=== PATIENT | female | born 1955 | race Caucasian/White ===

== ENCOUNTER 2023-07-07 16:18 | Inpatient (IN) ==
--- NOTE | 2023-07-07 16:51 | XRay Report ---
XR chest 1V portable CLINICAL HISTORY: Dyspnea. COMPARISON STUDY: No previous studies for comparison. FINDINGS: Lung volumes are normal. No pneumothorax or pleural effusion is present. There is mild card iomegaly. Mild left basilar opacity favors atelectasis. No consolidation is identified to suggest pne umonia. Mild interstitial prominence may be technical. IMPRESSION: 1. Left basilar opacity which favors atelectasis. No consolidation to suggest pneumonia. 2. Mild cardiomegaly. Interstitial prominence, likely technical. Pulmonary vascular congestion could appear similar. ACT 112: Negative or not required by law. Electronically signed by: Saurabh Patterson M.D. 07/07/2023 4:50 PM
--- NOTE | 2023-07-07 17:07 | Emergency Department Note ---
Impression & Plan Community acquired pneumonia, Hypoxia ED Provider Note NAME: RADHA MORAN AGE: 68 SEX: F : 1955 ARRIVES VIA: Ambulance INFORMANT: Patient, ED PROVIDER(S): Ella Lopez MD CHIEF COMPLAINT: Shortness of breath HPI: This is a 68-year-old female presenting for shortness of breath. Patient states that for the past 4 days she has noticed feeling ill with productive cough, yellow sputum. Increased shortness of breath. She has felt unwell with what she thinks her fevers at home. Upon arrival of EMS, they noted her to be hypoxic 85% on room air. She is tachycardic on arrival. At this time she is satting 90% with 2 L nasal cannula. ROS: See above HPI for pertinent positives & negatives. A total of 10 systems reviewed and were otherwise negative. PAST MEDICAL HISTORY: See Below PAST SURGICAL HISTORY: See Below FAMILY HISTORY: See Below SOCIAL HISTORY: See Below HOME MEDICATIONS: See Below ALLERGIES: See Below VITALS: See Below PHYSICAL EXAMINATION: General: resting comfortably in no acute distress Head: Normocephalic and atraumatic Eyes: Normal inspection, extraocular muscles intact, no conjunctival pallor Ear, nose, throat: Normal external exam Neck: Normal range of motion Respiratory: Patient is in no respiratory distress, lungs clear to auscultation bilaterally Cardiovascular: RRR without murmur appreciated GI: soft, nontender, no guarding or rebound Extremities: pulses intact with good cap refills, no LE pitting edema or calf tenderness Neuro: The patient awake and alert, appropriately conversive,no focal decifits Skin: Warm, dry, and intact MEDICAL DECISION MAKING: This is a 68-year-old female presenting for shortness of breath. Patient is hypoxic, with signs of infectious etiology. We will get CBC, BMP, basic labs, chest x-ray, COVID/flu testing. Patient's COVID/flu testing is negative. We will proceed to CTA to rule out PE and underlying pneumonia. X-ray only reveals atelectasis without consolidation to suggest pneumonia. Patient has not hypercarbic. Laboratories show slight leukocytosis. Otherwise CTA does reveal a possible pneumonia versus atelectasis. No PE is seen. Patient require admission for pneumonia and hypoxia. Triage Nursing notes reviewed. Prior medical records reviewed Vital Signs: reviewed and remarkable for no significant abnormalities Differential diagnosis: PE, pneumonia, COVID, CHF. ER treatment provided: See below Diagnostics interpreted by me: ECG: ECG reviewed by me with sinus tachycardia, ventricular rate 104 normal axis, normal ID, normal QRS, normal QTc, no ST segment elevations consistent with STEMI criteria Cardiac Monitoring: An order was placed for continuous cardiac monitoring. The monitor shows a rate of with rhythm. Laboratory studies: As stated above and show below. Imaging studies: See below. Radiographic imaging was reviewed by myself Consultation(s): None Past Med/Surg History Medical History (Updated 07/10/23 @ 11:07 by Ella Lopez MD) Partial traumatic transphalangeal amputation of finger Social History Smoking Status: Current every day smoker Tobacco Type: Cigarettes Second Hand Exposure: No; Do You Dip or Chew Tobacco: No; Tobacco Cessation Education Requested by Patient: No Hx Alcohol Use: No Preferred Language: Frisian Communication Ability: Effective Station Tender Required: No Beliefs That Will Affect Care: None Current Living Situation: Family Other Information That Helps Us Care for You: No Feels Safe at Home: Yes Safety Concerns: Feels Safe At This Time Assistive Devices: None Allergies Allergies Allergy/AdvReac Type Severity Reaction Status Date / Time No Known Allergies Allergy Unknown Unverified 07/08/16 12:46 Home Meds Home Medications Medication Instructions Recorded Confirmed albuterol sulfate 90 mcg/actuation 2 puff inhalation Q4H PRN 07/07/23 07/07/23 aerosol inhaler Shortness Of Breath Or Wheezing Results & Data (ED) Vital Signs Vital Signs - 24 hr 07/07/23 16:28 07/07/23 16:19 07/07/23 16:19 Temperature 37.3 C Temperature Source Oral Pulse Rate 117 H 120 H 120 H Pulse Rate [Right Finger] Respiratory Rate 18 18 Respiratory Effort / Characteristics Non-Labored Respiratory Depth Normal Respiratory Pattern Blood Pressure 171/77 H Blood Pressure [Right Arm] Blood Pressure Mean 108 Blood Pressure Mean [Right Arm] Pulse Oximetry 85 L 85 L Oxygen Delivery Method Room Air Room Air Oxygen Flow Rate Sepsis Recent Fever Within 48 Hours Yes Sepsis New/Unexplained Change in Mental Status N/A Sepsis Action Taken by Nursing No Action Required 07/07/23 16:19 07/07/23 16:36 07/07/23 18:31 Temperature 37.1 C Temperature Source Oral Pulse Rate 108 H Pulse Rate [Right Finger] 106 H Respiratory Rate 18 22 Respiratory Effort / Characteristics Spontaneous Respiratory Depth Normal Normal Respiratory Pattern Regular Blood Pressure Blood Pressure [Right Arm] 180/91 H Blood Pressure Mean Blood Pressure Mean [Right Arm] 120 Pulse Oximetry 91 94 Oxygen Delivery Method Nasal Cannula Nasal Cannula Nasal Cannula Oxygen Flow Rate 2 2 2 Sepsis Recent Fever Within 48 Hours Sepsis New/Unexplained Change in Mental Status Sepsis Action Taken by Nursing Laboratory Data 07/07/23 17:14 07/07/23 17:14 Lab Results 07/07/23 07/07/23 07/07/23 Range/Units 16:55 17:14 17:14 WBC 10.66 (4.8-10.8) K/ul RBC 4.26 (4.20-5.40) M/uL Hgb 12.0 (12.0-16.0) g/dl Hct 35.3 L (37.0-47.0) % MCV 82.9 (80.0-100.0) fL MCH 28.2 (25.0-34.0) pg MCHC 34.0 (32.0-36.0) g/dL RDW Std Deviation 38.3 (36.4-46.3) fL RDW Coeff of Rosario 12.7 (11.5-14.5) % Plt Count 228 (130-400) K/uL MPV 9.2 L (9.4-12.4) fL Immature Gran % (Auto) 0.5 % Neut % (Auto) 87.0 % Lymph % (Auto) 7.2 % Monona % (Auto) 4.9 % Eos % (Auto) 0.1 % Baso % (Auto) 0.3 % Neut # (Auto) 9.28 H (1.40-6.50) K/uL Lymph # (Auto) 0.77 L (1.20-3.40) K/uL Monona # (Auto) 0.52 (0.11-0.59) K/uL Eos # (Auto) 0.01 (0.00-0.50) K/uL Baso # (Auto) 0.03 (0.00-0.20) K/uL Immature Gran # (Auto) 0.05 (0.01-0.20) K/uL VBG pH (7.36-7.41) VBG pCO2 (38-50) mmHg VBG pO2 mmHg VBG HCO3 mmol/L VBG O2 Saturation % VBG Base Excess mEq/L Sodium 136 (136-145) mmol/L Potassium 3.7 (3.5-5.1) mmol/L Chloride 102 (98-107) mmol/L Carbon Dioxide 27 (21-32) mmol/L Anion Gap 7 (3-11) BUN 13 (6-23) mg/dl Creatinine 0.88 (0.6-1.2) mg/dl Est Cr Clr Drug Dosing 66.4 ml/min Est GFR ( Amer) 79.4 ml/min Est GFR (Non-Af Amer) 68.5 ml/min BUN/Creatinine Ratio 14.8 (10-20) Glucose 94 (70-99(Fasting)) mg/dl Calcium 9.2 (8.6-10.3) mg/dl Total Bilirubin 0.8 (0.2-1.0) mg/dl AST 13 (13-39) U/L ALT 9 (7-52) U/L Alkaline Phosphatase 58 (34-104) U/L Troponin I High Sens 3.2 (0-14) pg/ml Total Protein 8.0 (6.0-8.3) gm/dl Albumin 4.1 (3.4-5.0) gm/dl Globulin 3.9 (2.5-4.0) gm/dl Albumin/Globulin Ratio 1.1 (0.9-2) SARS-CoV-2 (PCR) NEGATIVE (Negative) Influenza Type A (PCR) Negative (Neg) Influenza Type B (PCR) Negative (Neg) RSV (RT-PCR) Negative (Neg) 07/07/23 Range/Units 17:14 WBC (4.8-10.8) K/ul RBC (4.20-5.40) M/uL Hgb (12.0-16.0) g/dl Hct (37.0-47.0) % MCV (80.0-100.0) fL MCH (25.0-34.0) pg MCHC (32.0-36.0) g/dL RDW Std Deviation (36.4-46.3) fL RDW Coeff of Rosario (11.5-14.5) % Plt Count (130-400) K/uL MPV (9.4-12.4) fL Immature Gran % (Auto) % Neut % (Auto) % Lymph % (Auto) % Monona % (Auto) % Eos % (Auto) % Baso % (Auto) % Neut # (Auto) (1.40-6.50) K/uL Lymph # (Auto) (1.20-3.40) K/uL Monona # (Auto) (0.11-0.59) K/uL Eos # (Auto) (0.00-0.50) K/uL Baso # (Auto) (0.00-0.20) K/uL Immature Gran # (Auto) (0.01-0.20) K/uL VBG pH 7.44 H (7.36-7.41) VBG pCO2 43 (38-50) mmHg VBG pO2 41 mmHg VBG HCO3 29 mmol/L VBG O2 Saturation 76.2 % VBG Base Excess 4.4 mEq/L Sodium (136-145) mmol/L Potassium (3.5-5.1) mmol/L Chloride (98-107) mmol/L Carbon Dioxide (21-32) mmol/L Anion Gap (3-11) BUN (6-23) mg/dl Creatinine (0.6-1.2) mg/dl Est Cr Clr Drug Dosing ml/min Est GFR ( Amer) ml/min Est GFR (Non-Af Amer) ml/min BUN/Creatinine Ratio (10-20) Glucose (70-99(Fasting)) mg/dl Calcium (8.6-10.3) mg/dl Total Bilirubin (0.2-1.0) mg/dl AST (13-39) U/L ALT (7-52) U/L Alkaline Phosphatase (34-104) U/L Troponin I High Sens (0-14) pg/ml Total Protein (6.0-8.3) gm/dl Albumin (3.4-5.0) gm/dl Globulin (2.5-4.0) gm/dl Albumin/Globulin Ratio (0.9-2) SARS-CoV-2 (PCR) (Negative) Influenza Type A (PCR) (Neg) Influenza Type B (PCR) (Neg) RSV (RT-PCR) (Neg) Administered Medications Albuterol (Albut/Ipratrop 3mg/0.5mg Neb 3 Ml Vial) 3 ml NEB QIDR RAFAEL; Protocol Stop: 08/08/23 18:59 Last Admin: 07/10/23 07:31 Dose: 3 ml Documented By: Admin: 07/09/23 19:22 Dose: 3 ml Documented By: ALVIN Enoxaparin Sodium (Enoxaparin Inj 40 Mg/0.4 Ml Syr) 40 mg SQ HS RAFAEL Stop: 08/07/23 00:00 Last Admin: 07/09/23 20:00 Dose: 40 mg Documented By: Admin: 07/08/23 20:56 Dose: 40 mg Documented By: Admin: 07/08/23 00:57 Dose: 40 mg Documented By: EITAN Guaifenesin (Guaifenesin 600 Mg Tabcr) 600 mg PO Q12 RAFAEL Stop: 08/08/23 20:59 Last Admin: 07/10/23 07:47 Dose: 600 mg Documented By: Admin: 07/09/23 20:00 Dose: 600 mg Documented By: EITAN Doxycycline Hyclate 100 mg/ (Dextrose) 100 mls @ 50 mls/hr IV Q12H RAFAEL Stop: 07/15/23 00:00 Last Infusion: 07/10/23 03:00 Dose: 0 mls/hr Documented By: Admin: 07/10/23 00:53 Dose: 50 mls/hr Documented By: Infusion: 07/09/23 14:45 Dose: 0 mls/hr Documented By: Admin: 07/09/23 12:34 Dose: 50 mls/hr Documented By: Infusion: 07/09/23 03:13 Dose: 0 mls/hr Documented By: Admin: 07/09/23 01:08 Dose: 50 mls/hr Documented By: Infusion: 07/08/23 13:51 Dose: 0 mls/hr Documented By: Admin: 07/08/23 11:21 Dose: 50 mls/hr Documented By: Infusion: 07/08/23 03:05 Dose: 0 mls/hr Documented By: Admin: 07/08/23 00:57 Dose: 50 mls/hr Documented By: EITAN Ceftriaxone Sodium 2,000 mg/ (Dextrose) 70 mls @ 100 mls/hr IV Q24H RAFAEL; Protocol Stop: 07/15/23 08:29 Last Infusion: 07/10/23 08:39 Dose: 0 mls/hr Documented By: Admin: 07/10/23 07:57 Dose: 100 mls/hr Documented By: Infusion: 07/09/23 09:28 Dose: 0 mls/hr Documented By: Admin: 07/09/23 08:33 Dose: 100 mls/hr Documented By: Infusion: 07/08/23 10:02 Dose: 0 mls/hr Documented By: Admin: 07/08/23 09:09 Dose: 100 mls/hr Documented By: SABA Levalbuterol HCl (Levalbuterol 1.25 Mg/3 Ml Neb) 1.25 mg NEB Q2H PRN; Protocol PRN Reason: Shortness Of Breath Or Wheezing Stop: 08/06/23 23:53 Last Admin: 07/09/23 11:14 Dose: 1.25 mg Documented By: AVANI Methadone HCl (Methadone Oral Soln 2 Mg/Ml) 180 mg PO Q24H RAFAEL Stop: 07/22/23 07:59 Last Admin: 07/10/23 07:46 Dose: 180 mg Documented By: Admin: 07/09/23 08:27 Dose: 180 mg Documented By: Admin: 07/08/23 07:56 Dose: 180 mg Documented By: SABA Nicotine (Nicotine 21 Mg/24 Hr Tdsy) 21 mg TD HS RAFAEL Stop: 08/08/23 21:29 Last Admin: 07/09/23 21:49 Dose: 21 mg Documented By: EITAN Non-Formulary Medication (Patient's Own Controlled Med 1) 1 each PO Q24H RAFAEL Stop: 07/22/23 07:59 Last Admin: 07/10/23 07:46 Dose: Not Given Documented By: Admin: 07/09/23 08:29 Dose: Not Given Documented By: Admin: 07/08/23 07:57 Dose: 180 mg Documented By: SABA Prednisone (Prednisone 20 Mg Tab) 40 mg PO DAILY RAFAEL Stop: 07/11/23 12:29 Last Admin: 07/10/23 07:47 Dose: 40 mg Documented By: Admin: 07/09/23 08:30 Dose: 40 mg Documented By: Admin: 07/08/23 13:59 Dose: 40 mg Documented By: SABA Sodium Chloride (Sodium Chlor 7% 4 Ml Neb) 4 ml NEB BIDR RAFAEL Stop: 08/07/23 08:09 Last Admin: 07/10/23 07:19 Dose: 4 ml Documented By: Admin: 07/09/23 19:22 Dose: 4 ml Documented By: Admin: 07/09/23 07:11 Dose: 4 ml Documented By: Admin: 07/08/23 19:19 Dose: 4 ml Documented By: Admin: 07/08/23 09:03 Dose: 4 ml Documented By: [id number] Discontinued Medications Albuterol (Albuterol 0.083% Nebu Soln 3 Ml Vial) 2.5 mg NEB NOW STA; Protocol Stop: 07/07/23 20:08 Last Admin: 07/07/23 20:32 Dose: 2.5 mg Documented By: MARIA INES Methylprednisolone 40 mg/ (Syringe) 0.64 mls @ 1.5 mls/min IV Q8H RAFAEL Stop: 08/07/23 00:00 Last Admin: 07/08/23 07:57 Dose: 1.5 mls/min Documented By: Admin: 07/08/23 00:57 Dose: 1.5 mls/min Documented By: EITAN Ioversol (Optiray 350 500ml) 120 ml IV ONCE ONE Stop: 07/07/23 19:26 Last Admin: 07/07/23 19:25 Dose: 120 ml Documented By: BENTON Ipratropium Exeter (Ipratropium [place] Neb Soln 0.02% 2.5 Ml Vial) 0.5 mg INH QIDR RAFAEL Stop: 08/07/23 06:59 Last Admin: 07/08/23 07:08 Dose: 0.5 mg Documented By: [id number] Ipratropium [place] (Ipratropium [place] Neb Soln 0.02% 2.5 Ml Vial) 0.5 mg INH BIDR RAFAEL Stop: 08/07/23 18:59 Last Admin: 07/09/23 07:12 Dose: 0.5 mg Documented By: Admin: 07/08/23 19:19 Dose: 0.5 mg Documented By: ZAFAR Levalbuterol HCl (Levalbuterol 1.25 Mg/3 Ml Neb) 1.25 mg NEB QIDR RAFAEL Stop: 08/07/23 06:59 Last Admin: 07/08/23 07:08 Dose: 1.25 mg Documented By: [id number] Levalbuterol HCl (Levalbuterol 1.25 Mg/3 Ml Neb) 1.25 mg NEB BIDR RAFAEL Stop: 08/07/23 18:59 Last Admin: 07/09/23 07:11 Dose: 1.25 mg Documented By: Admin: 07/08/23 19:19 Dose: 1.25 mg Documented By: ZAFAR Potassium Chloride (Potassium Chloride Crtab 20 Meq Tabcr) 40 meq PO NOW STA Stop: 07/08/23 12:20 Last Admin: 07/08/23 13:59 Dose: 40 meq Documented By: SABA Imaging Data Radiologist's Impression: Chest X-Ray 07/07/23 16:36 XR chest 1V portable CLINICAL HISTORY: Dyspnea. COMPARISON STUDY: No previous studies for comparison. FINDINGS: Lung volumes are normal. No pneumothorax or pleural effusion is pres ent. There is mild cardiomegaly. Mild left basilar opacity favors atelectasis. No consolidation is identified to suggest pneumonia. Mild interstitial prominence may be technical. IMPRESSION: 1. Left basilar opacity which favors atelectasis. No consolidation to suggest pneumonia. 2. Mild cardiomegaly. Interstitial prominence, likely technical. Pulmonary vascular congestion could appear similar. ACT 112: Negative or not required by law. Electronically signed by: Saurabh Patterson M.D. 07/07/2023 4:50 PM Discharge Plan Visit Data Chief Complaint: Respiratory Problems ED Provider: Ella Lopez Discharge Problem: Community acquired pneumonia, Hypoxia Patient Disposition: Admitted As Inpatient Discharge Instructions Interventions: ED Discharge Assessment Last Done: 07/07/23 23:38
[2023-07-07 17:27] LABS: Base Excess VBG 4.4 mEq/L; HCO3 VBG 29 mmol/L; Oxygen Saturation VBG 76.2 %; PCO2 VBG 43 mmHg (38-50); PO2 VBG 41 mmHg; pH VBG 7.44 (7.36-7.41)
[2023-07-07 17:37] LABS: Basophils # (auto) 0.03 K/uL (0.00-0.20); Basophils % (auto) 0.3 %; Eosinophils # (auto) 0.01 K/uL (0.00-0.50); Eosinophils % (auto) 0.1 %; Hematocrit (blood only) 35.3 % (37.0-47.0); Immature Granulocytes # (auto) 0.05 K/uL (0.01-0.20); Immature Granulocytes % (auto) 0.5 %; Lymphocytes # (auto) 0.77 K/uL (1.20-3.40); Lymphocytes % (auto) 7.2 %; Mean Corpuscular Hemoglobin 28.2 pg (25.0-34.0); Mean Corpuscular Volume 82.9 fL (80.0-100.0); Mean Platelet Volume 9.2 fL (9.4-12.4); Monocytes # (auto) 0.52 K/uL (0.11-0.59); Monocytes % (auto) 4.9 %; Neutrophils # (auto) 9.28 K/uL (1.40-6.50); Platelet Count 228 K/uL (130-400); RDW Coefficient of Variation 12.7 % (11.5-14.5); RDW Standard Deviation 38.3 fL (36.4-46.3); Red Blood Count 4.26 M/uL (4.20-5.40); White Blood Count 10.66 K/ul (4.8-10.8)
[2023-07-07 17:54] LABS: Albumin Globulin Ratio 1.1 (0.9-2); Albumin Level 4.1 gm/dl (3.4-5.0); BUN Creatinine Ratio 14.8 (10-20); Bilirubin,Total 0.8 mg/dl (0.2-1.0); Calcium 9.2 mg/dl (8.6-10.3); Creatinine Clr Calc Pharmacy 66.4 ml/min; Est GFR (African American) 79.4 ml/min; Est GFR (Non-African American) 68.5 ml/min; Globulin 3.9 gm/dl (2.5-4.0); Potassium 3.7 mmol/L (3.5-5.1)
[2023-07-07 17:59] LABS: Troponin I High Sensitivity 3.2 pg/ml (0-14)
[2023-07-07 18:10] LABS: Influenza A virus by PCR Negative (Neg); Influenza B virus by PCR Negative (Neg); RSV by PCR Negative (Neg); SARS CoV2 RNA(COVID-19) Ceph NEGATIVE (Negative)
[2023-07-07] MEDS ORDERED: OPTIRAY 350 500ml IV ONE (19:25)
[2023-07-07] MEDS ORDERED: ALBUTEROL 0.083% NEBU SOLN 3 ML VIAL NEB STA (20:07)
--- NOTE | 2023-07-07 20:22 | CT Scan Report ---
Exam(s): CTA CHEST IV Amt: 120 ml optiray 350 EXAM: CT Angiography Chest With Intravenous Contrast CLINICAL HISTORY: Reason for exam: PE. TECHNIQUE: Axial computed tomographic angiography images of the chest with intravenous contrast. CTDI is 30 mGy and DLP is 384.18 mGy-cm. Automated exposure control was utilized for the study. A dose lowering technique was utilized adhering to the principles of ALARA. MIP reconstructed images were created and reviewed. COMPARISON: None FINDINGS: Pulmonary arteries: Unremarkable. No pulmonary embolus identified. Aorta: No aortic aneurysm or dissection. Atherosclerotic changes in aorta. Lungs: Consolidations in the lower lobes, concerning for atelectasis and pneumonia. Probable atelectasis in the right middle lobe and lingula. Bronchial wall thickening is concerning for bronchitis. Probable mucus impaction and left greater than right lower lobe bronchi. Mild scarring of the lung apices. Pleural space: Unremarkable. No significant effusion. No pneumothorax. Heart: Unremarkable. No cardiomegaly. No significant pericardial effusion. No evidence of RV dysfunction. Bones/joints: Degenerative changes of the spine. No acute fracture. No dislocation. Soft tissues: Unremarkable. Lymph nodes: Unremarkable. No enlarged lymph nodes. IMPRESSION: 1. No pulmonary embolus identified. 2. Consolidations in the lower lobes, concerning for atelectasis and pneumonia. Probable atelectasis in the right middle lobe and lingula. 3. Bronchial wall thickening is concerning for bronchitis. Probable mucus impaction and left greater than right lower lobe bronchi. 4. No aortic aneurysm or dissection. Atherosclerotic changes in aorta. Electronically signed by: Mark Krueger M.D. 07/07/23 20:21 PM
--- NOTE | 2023-07-07 21:42 | History & Physical Report ---
Date of Service July 07, 2023 Assessment & Plan (1) Hypoxia: Plan: 68-year-old female with history of ongoing tobacco abuse and says she is on methadone as she used to do heroin and currently not doing it since last for 5 years as per patient ,comes today because of shortness of breath and cough going on for for last 4 to 5 days. Bringing phlegm. She was hypoxic on room air 85%. Currently on 3 L saturating okay. Hypoxia Ongoing tobacco abuse Mild bilateral rhonchi Likely acute bronchitis and COPD exasperation No leukocytosis and no infiltrate on chest x-ray. COVID and flu and RSV negative. IV Solu-Medrol, nebs [id number] and as needed P.o. doxycycline Monitor the response Two-step prior to discharge Tobacco abuse Needs counseling History of heroin abuse She is currently on methadone Pharmacy confirmed the dose DVT prophylaxis Lovenox Disposition med/telemetry Full code History of Present Illness Chief Complaint: Shortness of breath Primary Care Provider: Sary Magallon PA-C 68-year-old female with history of ongoing tobacco abuse and says she is on methadone as she used to do heroin and currently not doing it since last for 5 years as per patient ,comes today because of shortness of breath and cough going on for for last 4 to 5 days. Bringing phlegm. She was hypoxic on room air 85%. Currently on 3 L she is saturating okay. Denies any fevers. No chest pain. Had episode of vomiting in the ER. No abdominal pain. No headaches. No neck pain. Has some back pain. Normal bowel and bladder movements. Currently resting comfortably. Past medical history as mentioned above Past surgical history none as per patient Social history. Smoking 1 pack of cigarettes daily for last 30 years. Alcohol occasional. History of heroin in the past but states no drug use last for 4/5 years. Family history. Mother had hypertension. Dad had colon cancer as per patient Allergies Allergy/AdvReac Type Severity Reaction Status Date / Time No Known Allergies Allergy Unknown Unverified 07/08/16 12:46 Home Medications Medication Instructions Recorded Confirmed Type albuterol sulfate 90 mcg/actuation 2 puff inhalation Q4H PRN 07/07/23 07/07/23 History aerosol inhaler Shortness Of Breath Or Wheezing Past Med/Surg History Medical History (Updated 07/07/23 @ 21:40 by Luis Ospina MD) Partial traumatic transphalangeal amputation of finger Social History Smoking Status: Current every day smoker Tobacco Type: Cigarettes Second Hand Exposure: No; Do You Dip or Chew Tobacco: No; Tobacco Cessation Education Requested by Patient: No Hx Alcohol Use: No Preferred Language: Latvian Communication Ability: Effective Speech Clinician Required: No Beliefs That Will Affect Care: None Current Living Situation: Family Other Information That Helps Us Care for You: No Feels Safe at Home: Yes Safety Concerns: Feels Safe At This Time Assistive Devices: Glasses Review of Systems Review of Systems: All systems reviewed & are unremarkable except as noted in HPI & below Physical Exam Physical Exam: General- Not in distress Head- atraumatic Eyes- PERRL, ENT- oropharynx clear Neck- supple, no JVD,. Lungs- clear to auscultation mild bilateral rhonchi heard Heart- regular rhythm; no murmur, no gallop. Abdomen- normal bowel sounds, soft, nontender, no distension. Extremities- no pretibial edema, no erythema seen. Neuro- alert, oriented x 3; PERRL, no facial palsy; no dysarthria; non focal. Skin- warm & dry Results & Data Results & Data Vital Signs (Past 12 Hours) Vital Signs Temp Pulse Pulse Resp BP BP Pulse Ox 07/07/23 20:30 105 H 07/07/23 20:13 103 H 20 145/66 H 93 07/07/23 19:30 104 H 17 93 07/07/23 19:29 94 07/07/23 19:26 108 H 159/83 H 92 07/07/23 19:00 98 H 20 96 07/07/23 18:31 37.1 C 106 H 22 180/91 H 94 07/07/23 16:36 07/07/23 16:19 108 H 18 91 07/07/23 16:19 120 H 18 85 L 07/07/23 16:19 37.3 C 120 H 18 171/77 H 85 L 07/07/23 16:28 117 H O2 Del Method O2 Flow Rate 07/07/23 20:30 07/07/23 20:13 Nasal Cannula 3 07/07/23 19:30 Nasal Cannula 3 07/07/23 19:29 Nasal Cannula 3 07/07/23 19:26 Nasal Cannula 2 07/07/23 19:00 Nasal Cannula 2 07/07/23 18:31 Nasal Cannula 2 07/07/23 16:36 Nasal Cannula 2 07/07/23 16:19 Nasal Cannula 2 07/07/23 16:19 Room Air 07/07/23 16:19 Room Air 07/07/23 16:28 Diagnostic Findings Laboratory Results WBC 10.66 K/ul (4.8-10.8) 07/07/23 17:14 RBC 4.26 M/uL (4.20-5.40) 07/07/23 17:14 Hgb 12.0 g/dl (12.0-16.0) 07/07/23 17:14 Hct 35.3 % (37.0-47.0) L 07/07/23 17:14 MCV 82.9 fL (80.0-100.0) 07/07/23 17:14 MCH 28.2 pg (25.0-34.0) 07/07/23 17:14 MCHC 34.0 g/dL (32.0-36.0) 07/07/23 17:14 RDW Std Deviation 38.3 fL (36.4-46.3) 07/07/23 17:14 RDW Coeff of Rosario 12.7 % (11.5-14.5) 07/07/23 17:14 Plt Count 228 K/uL (130-400) 07/07/23 17:14 MPV 9.2 fL (9.4-12.4) L 07/07/23 17:14 Immature Gran % (Auto) 0.5 % 07/07/23 17:14 Neut % (Auto) 87.0 % 07/07/23 17:14 Lymph % (Auto) 7.2 % 07/07/23 17:14 [place] % (Auto) 4.9 % 07/07/23 17:14 Eos % (Auto) 0.1 % 07/07/23 17:14 Baso % (Auto) 0.3 % 07/07/23 17:14 Neut # (Auto) 9.28 K/uL (1.40-6.50) H 07/07/23 17:14 Lymph # (Auto) 0.77 K/uL (1.20-3.40) L 07/07/23 17:14 [place] # (Auto) 0.52 K/uL (0.11-0.59) 07/07/23 17:14 Eos # (Auto) 0.01 K/uL (0.00-0.50) 07/07/23 17:14 Baso # (Auto) 0.03 K/uL (0.00-0.20) 07/07/23 17:14 Immature Gran # (Auto) 0.05 K/uL (0.01-0.20) 07/07/23 17:14 VBG pH 7.44 (7.36-7.41) H 07/07/23 17:14 VBG pCO2 43 mmHg (38-50) 07/07/23 17:14 VBG pO2 41 mmHg 07/07/23 17:14 VBG HCO3 29 mmol/L 07/07/23 17:14 VBG O2 Saturation 76.2 % 07/07/23 17:14 VBG Base Excess 4.4 mEq/L 07/07/23 17:14 Sodium 136 mmol/L (136-145) 07/07/23 17:14 Potassium 3.7 mmol/L (3.5-5.1) 07/07/23 17:14 Chloride 102 mmol/L (98-107) 07/07/23 17:14 Carbon Dioxide 27 mmol/L (21-32) 07/07/23 17:14 Anion Gap 7 (3-11) 07/07/23 17:14 BUN 13 mg/dl (6-23) 07/07/23 17:14 Creatinine 0.88 mg/dl (0.6-1.2) 07/07/23 17:14 Est Cr Clr Drug Dosing 66.4 ml/min 07/07/23 17:14 Est GFR ( Amer) 79.4 ml/min 07/07/23 17:14 Est GFR (Non-Af Amer) 68.5 ml/min 07/07/23 17:14 BUN/Creatinine Ratio 14.8 (10-20) 07/07/23 17:14 Glucose 94 mg/dl (70-99(Fasting)) 07/07/23 17:14 Calcium 9.2 mg/dl (8.6-10.3) 07/07/23 17:14 Total Bilirubin 0.8 mg/dl (0.2-1.0) 07/07/23 17:14 AST 13 U/L (13-39) 07/07/23 17:14 ALT 9 U/L (7-52) 07/07/23 17:14 Alkaline Phosphatase 58 U/L (34-104) 07/07/23 17:14 Troponin I High Sens 3.2 pg/ml (0-14) 07/07/23 17:14 Total Protein 8.0 gm/dl (6.0-8.3) 07/07/23 17:14 Albumin 4.1 gm/dl (3.4-5.0) 07/07/23 17:14 Globulin 3.9 gm/dl (2.5-4.0) 07/07/23 17:14 Albumin/Globulin Ratio 1.1 (0.9-2) 07/07/23 17:14 SARS-CoV-2 (PCR) NEGATIVE (Negative) 07/07/23 16:55 Influenza Type A (PCR) Negative (Neg) 07/07/23 16:55 Influenza Type B (PCR) Negative (Neg) 07/07/23 16:55 RSV (RT-PCR) Negative (Neg) 07/07/23 16:55 Impressions Chest X-Ray 07/07/23 16:36 XR chest 1V portable CLINICAL HISTORY: Dyspnea. COMPARISON STUDY: No previous studies for comparison. FINDINGS: Lung volumes are normal. No pneumothorax or pleural effusion is present. There is mild cardiomegaly. Mild left basilar opacity favors atelectasis. No consolidation is identified to suggest pneumonia. Mild interstitial prominence may be technical. IMPRESSION: 1. Left basilar opacity which favors atelectasis. No consolidation to suggest pneumonia. 2. Mild cardiomegaly. Interstitial prominence, likely technical. Pulmonary vascular congestion could appear similar. ACT 112: Negative or not required by law. Electronically signed by: Saurabh Patterson M.D. 07/07/2023 4:50 PM Chest CTA 07/07/23 16:48 Exam(s): CTA CHEST IV Amt: 120 ml optiray 350 EXAM: CT Angiography Chest With Intravenous Contrast CLINICAL HISTORY: Reason for exam: PE. TECHNIQUE: Axial computed tomographic angiography images of the chest with intravenous contrast. CTDI is 30 mGy and DLP is 384.18 mGy-cm. Automated exposure control was utilized for the study. A dose lowering technique was utilized adhering to the principles of ALARA. MIP reconstructed images were created and reviewed. COMPARISON: None FINDINGS: Pulmonary arteries: Unremarkable. No pulmonary embolus identified. Aorta: No aortic aneurysm or dissection. Atherosclerotic changes in aorta. Lungs: Consolidations in the lower lobes, concerning for atelectasis and pneumonia. Probable atelectasis in the right middle lobe and lingula. Bronchial wall thickening is concerning for bronchitis. Probable mucus impaction and left greater than right lower lobe bronchi. Mild scarring of the lung apices. Pleural space: Unremarkable. No significant effusion. No pneumothorax. Heart: Unremarkable. No cardiomegaly. No significant pericardial effusion. No evidence of RV dysfunction. Bones/joints: Degenerative changes of the spine. No acute fracture. No dislocation. Soft tissues: Unremarkable. Lymph nodes: Unremarkable. No enlarged lymph nodes. IMPRESSION: 1. No pulmonary embolus identified. 2. Consolidations in the lower lobes, concerning for atelectasis and pneumonia. Probable atelectasis in the right middle lobe and lingula. 3. Bronchial wall thickening is concerning for bronchitis. Probable mucus impaction and left greater than right lower lobe bronchi. 4. No aortic aneurysm or dissection. Atherosclerotic changes in aorta. Electronically signed by: Mark Krueger M.D. 07/07/23 20:21 PM ECG Additional Comments: ECG. Sinus tachycardia rate of 104. Nonspecific ST abnormalities. No significant change was found. Code Status & VTE Plan VTE Prophylaxis Plan VTE Prophylaxis will be ordered: Yes
[2023-07-07] MEDS ORDERED: NITROGLYCERIN SL 0.4 MG/TAB TAB SL PRN (23:54)
[2023-07-07] MEDS ORDERED: ACETAMINOPHEN 325 MG TAB PO PRN (23:54)
[2023-07-07] MEDS ORDERED: LEVALBUTEROL 1.25 MG/3 ML NEB NEB PRN (23:54)
[2023-07-08 00:48] LABS: Appearance Urine Clear (Clear); Bilirubin Urine Negative (Negative); Blood Urine Negative (Negative); Color Urine Yellow; Glucose Urine UA Negative (Negative); Ketones Urine Trace (Negative); Leukocyte Esterase Urine Negative (Negative); Nitrite Urine Negative (Negative); Protein Urine Negative (Negative); Specific Gravity Urine > 1.045 (1.000-1.030); Urobilinogen Urine Negative (Negative)
[2023-07-08] MEDS: ENOXAPARIN INJ 40 MG/0.4 ML SYR SQ SCH ×2 (00:57→20:56)
[2023-07-08] MEDS: DOXYCYCLINE HYCLATE 100 MG in DEXTROSE 5% MINI-B 100 ML IV SCH ×2 (00:57→11:21)
[2023-07-08] MEDS: methylPREDNISolone 40 MG in SYRINGE 0 ML IV SCH ×2 (00:57→07:57)
[2023-07-08 06:41] LABS: Hematocrit (blood only) 39.3 % (37.0-47.0); Hemoglobin 13.2 g/dl (12.0-16.0); Mean Corpuscular Hgb Conc 33.6 g/dL (32.0-36.0); Mean Corpuscular Volume 83.3 fL (80.0-100.0); Mean Platelet Volume 9.2 fL (9.4-12.4); Platelet Count 250 K/uL (130-400); RDW Coefficient of Variation 12.4 % (11.5-14.5); Red Blood Count 4.72 M/uL (4.20-5.40); White Blood Count 13.36 K/ul (4.8-10.8)
[2023-07-08 06:54] LABS: BUN Creatinine Ratio 13.6 (10-20); Calcium 9.7 mg/dl (8.6-10.3); Est GFR (African American) 87.7 ml/min; Est GFR (Non-African American) 75.7 ml/min; Magnesium 2.1 mg/dl (1.7-2.4); Potassium 3.4 mmol/L (3.5-5.1)
[2023-07-08] MEDS ORDERED: LEVALBUTEROL 1.25 MG/3 ML NEB NEB SCH ×2 (07:00→09:00)
[2023-07-08] MEDS ORDERED: IPRATROPIUM BROMIDE NEB SOLN 0.02% 2.5 ML VIAL INH SCH ×2 (07:00→09:00)
[2023-07-08 07:22] LABS: Basophils # (auto) 0.02 K/uL (0.00-0.20); Basophils % (auto) 0.1 %; Hypersegmented Neutrophils 1+; Immature Granulocytes # (auto) 0.09 K/uL (0.01-0.20); Immature Granulocytes % (auto) 0.7 %; Lymphocytes # (auto) 0.66 K/uL (1.20-3.40); Lymphocytes % (auto) 4.9 %; Monocytes # (auto) 0.13 K/uL (0.11-0.59); Neutrophils # (auto) 12.46 K/uL (1.40-6.50); Neutrophils % (auto) 93.3 %; Rouleaux 1+
[2023-07-08] MEDS: METHADONE ORAL SOLN 2 MG/ML PO SCH (07:56)
[2023-07-08] MEDS: PATIENT'S OWN CONTROLLED MED 1 PO SCH (07:57)
[2023-07-08] MEDS ORDERED: XOPENEX/ATROVENT 1.25mg/0.5MG NEB COMBO NEB SCH (09:00)
[2023-07-08] MEDS: SODIUM CHLOR 7% 4 ML NEB NEB SCH ×2 (09:03→19:19)
[2023-07-08] MEDS: cefTRIAXone SODIUM 2,000 MG in DEXTROSE 5% 50 ML IV SCH (09:09)
--- NOTE | 2023-07-08 11:32 | Electrocardiogram Report ---
Test Reason : Blood Pressure : / mmHG Vent. Rate : 104 BPM Atrial Rate : 104 BPM P-R Int : 168 ms QRS Dur : 090 ms QT Int : 354 ms P-R-T Axes : 076 016 059 degrees QTc Int : 465 ms Sinus tachycardia Diffuse Minor Nonspecific ST abnormality Abnormal ECG When compared with ECG of 02-JAN-2023 08:47, No significant change was found Confirmed by Christian Russ ([id number]) on 07/08/2023 11:32:10 AM Referred By: REFERRED SELF Confirmed By:Christian Russ
[2023-07-08] MEDS ORDERED: POTASSIUM CHLORIDE CRTAB 20 MEQ TABCR PO STA (12:19)
--- NOTE | 2023-07-08 12:24 | Hospitalist Progress Note ---
Date of Service July 08, 2023 Assessment & Plan (1) Hypoxia: Plan: 68-year-old female with history of ongoing tobacco abuse and says she is on methadone as she used to do heroin and currently not doing it since last for 5 years as per patient ,comes today because of shortness of breath and cough going on for for last 4 to 5 days. Bringing phlegm. She was hypoxic on room air 85%. Acute hypoxic respiratory failure Pneumonia Possible COPD exacerbation 68-year-old female with history of ongoing tobacco abuse presents with shortness of breath and cough for 4 days Chest x-ray personally reviewed; left basilar opacity present CTA chest personally reviewed; consolidation in lower lobes concerning for atelectasis and pneumonia. Mucus impaction present as well EKG personally reviewed; sinus tachycardia; diffuse and nonspecific ST changes. QTc of 465 Continue on ipratropium and levalbuterol nebs twice daily along with hypertonic saline for airway clearance Started on ceftriaxone and doxycycline for the pneumonia Wean down oxygen as needed Will need outpatient pulmonology referral. Prednisone for 5 days Tobacco abuse Needs counseling Will need to follow-up with PCP regarding tobacco use disorder. History of heroin abuse She is currently on methadone Pharmacy confirmed the dose DVT prophylaxis Lovenox Disposition med/telemetry Full code Time spent evaluating patient, direct bedside care, chart review, placing orders, interpretation of diagnostic studies, discussion with consultants, patient, and family members, as well as other required patient management activities is 60 minutes Please note the above document was generated using voice recognition software. It may contain grammatical, syntax or spelling errors. Any formal questions or concerns about the content, text or information contained within the body of this dictation should be directly addressed to the provider for clarification Admission and Anticipated Discharge Date Admission Date: July 07, 2023 Subjective Patient seen and examined at bedside. She reports she is feeling slightly better compared to admission. She reports coughing up clear sputum. Review of Systems Review of Systems: All systems reviewed & are unremarkable except as noted in Subjective Physical Exam Physical Exam: General- Not in distress Head- atraumatic Eyes- PERRL, ENT- oropharynx clear Neck- supple, no JVD,. Lungs- occasional crackles on bilateral bases Heart- regular rhythm; no murmur, no gallop. Abdomen- normal bowel sounds, soft, nontender, no distension. Extremities- no pretibial edema, no erythema seen. Neuro- alert, oriented x 3; PERRL, no facial palsy; no dysarthria; non focal. Skin- warm & dry Results & Data Results & Data Vital Signs (Past 12 Hours) Vital Signs Temp Pulse Pulse Resp BP Pulse Ox O2 Del Method 07/08/23 10:49 36.8 C 73 20 100/55 L 90 Nasal Cannula 07/08/23 07:15 88 07/08/23 07:15 Nasal Cannula 07/08/23 09:05 82 15 91 Nasal Cannula 07/08/23 07:23 36.8 C 89 20 132/68 92 Nasal Cannula 07/08/23 07:10 88 19 87 L Nasal Cannula 07/08/23 03:07 36.9 C 85 22 124/68 93 Nasal Cannula O2 Flow Rate 07/08/23 10:49 3 07/08/23 07:15 07/08/23 07:15 4 07/08/23 09:05 3 07/08/23 07:23 2 07/08/23 07:10 4 07/08/23 03:07 4 Laboratory Results Laboratory Results WBC 13.36 K/ul (4.8-10.8) H 07/08/23 06:14 RBC 4.72 M/uL (4.20-5.40) 07/08/23 06:14 Hgb 13.2 g/dl (12.0-16.0) 07/08/23 06:14 Hct 39.3 % (37.0-47.0) 07/08/23 06:14 MCV 83.3 fL (80.0-100.0) 07/08/23 06:14 MCH 28.0 pg (25.0-34.0) 07/08/23 06:14 MCHC 33.6 g/dL (32.0-36.0) 07/08/23 06:14 RDW Std Deviation 38.0 fL (36.4-46.3) 07/08/23 06:14 RDW Coeff of Rosario 12.4 % (11.5-14.5) 07/08/23 06:14 Plt Count 250 K/uL (130-400) 07/08/23 06:14 MPV 9.2 fL (9.4-12.4) L 07/08/23 06:14 Immature Gran % (Auto) 0.7 % 07/08/23 06:14 Neut % (Auto) 93.3 % 07/08/23 06:14 Lymph % (Auto) 4.9 % 07/08/23 06:14 [place] % (Auto) 1.0 % 07/08/23 06:14 Eos % (Auto) 0.0 % 07/08/23 06:14 Baso % (Auto) 0.1 % 07/08/23 06:14 Neut # (Auto) 12.46 K/uL (1.40-6.50) H 07/08/23 06:14 Lymph # (Auto) 0.66 K/uL (1.20-3.40) L 07/08/23 06:14 [place] # (Auto) 0.13 K/uL (0.11-0.59) 07/08/23 06:14 Eos # (Auto) 0.00 K/uL (0.00-0.50) 07/08/23 06:14 Baso # (Auto) 0.02 K/uL (0.00-0.20) 07/08/23 06:14 Immature Gran # (Auto) 0.09 K/uL (0.01-0.20) 07/08/23 06:14 Hypersegmented Neuts 1+ 07/08/23 06:14 Rouleaux 1+ 07/08/23 06:14 VBG pH 7.44 (7.36-7.41) H 07/07/23 17:14 VBG pCO2 43 mmHg (38-50) 07/07/23 17:14 VBG pO2 41 mmHg 07/07/23 17:14 VBG HCO3 29 mmol/L 07/07/23 17:14 VBG O2 Saturation 76.2 % 07/07/23 17:14 VBG Base Excess 4.4 mEq/L 07/07/23 17:14 Sodium 137 mmol/L (136-145) 07/08/23 06:14 Potassium 3.4 mmol/L (3.5-5.1) L 07/08/23 06:14 Chloride 101 mmol/L (98-107) 07/08/23 06:14 Carbon Dioxide 28 mmol/L (21-32) 07/08/23 06:14 Anion Gap 8 (3-11) 07/08/23 06:14 BUN 11 mg/dl (6-23) 07/08/23 06:14 Creatinine 0.81 mg/dl (0.6-1.2) 07/08/23 06:14 Est Cr Clr Drug Dosing 64.0 ml/min 07/08/23 06:14 Est GFR ( Amer) 87.7 ml/min 07/08/23 06:14 Est GFR (Non-Af Amer) 75.7 ml/min 07/08/23 06:14 BUN/Creatinine Ratio 13.6 (10-20) 07/08/23 06:14 Glucose 171 mg/dl (70-99(Fasting)) H 07/08/23 06:14 Calcium 9.7 mg/dl (8.6-10.3) 07/08/23 06:14 Magnesium 2.1 mg/dl (1.7-2.4) 07/08/23 06:14 Total Bilirubin 0.8 mg/dl (0.2-1.0) 07/07/23 17:14 AST 13 U/L (13-39) 07/07/23 17:14 ALT 9 U/L (7-52) 07/07/23 17:14 Alkaline Phosphatase 58 U/L (34-104) 07/07/23 17:14 Troponin I High Sens 3.2 pg/ml (0-14) 07/07/23 17:14 Total Protein 8.0 gm/dl (6.0-8.3) 07/07/23 17:14 Albumin 4.1 gm/dl (3.4-5.0) 07/07/23 17:14 Globulin 3.9 gm/dl (2.5-4.0) 07/07/23 17:14 Albumin/Globulin Ratio 1.1 (0.9-2) 07/07/23 17:14 Urine Color Yellow 07/08/23 Unknown Urine Appearance Clear (Clear) 07/08/23 Unknown Urine pH 5.0 (4.5-7.5) 07/08/23 Unknown Ur Specific [place] > 1.045 (1.000-1.030) H 07/08/23 Unknown Urine Protein Negative (Negative) 07/08/23 Unknown Urine Glucose (UA) Negative (Negative) 07/08/23 Unknown Urine Ketones Trace (Negative) H 07/08/23 Unknown Urine Blood Negative (Negative) 07/08/23 Unknown Urine Nitrite Negative (Negative) 07/08/23 Unknown Urine Bilirubin Negative (Negative) 07/08/23 Unknown Urine Urobilinogen Negative (Negative) 07/08/23 Unknown Ur Leukocyte Esterase Negative (Negative) 07/08/23 Unknown SARS-CoV-2 (PCR) NEGATIVE (Negative) 07/07/23 16:55 Influenza Type A (PCR) Negative (Neg) 07/07/23 16:55 Influenza Type B (PCR) Negative (Neg) 07/07/23 16:55 RSV (RT-PCR) Negative (Neg) 07/07/23 16:55 Impressions Chest X-Ray 07/07/23 16:36 XR chest 1V portable CLINICAL HISTORY: Dyspnea. COMPARISON STUDY: No previous studies for comparison. FINDINGS: Lung volumes are normal. No pneumothorax or pleural effusion is present. There is mild cardiomegaly. Mild left basilar opacity favors atelec tasis. No consolidation is identified to suggest pneumonia. Mild interstitial prominence may be technical. IMPRESSION: 1. Left basilar opacity which favors atelectasis. No consolidation to suggest pneumonia. 2. Mild cardiomegaly. Interstitial prominence, likely technical. Pulmonary vascular congestion could appear similar. ACT 112: Negative or not required by law. Electronically signed by: Saurabh Patterson M.D. 07/07/2023 4:50 PM Chest CTA 07/07/23 16:48 Exam(s): CTA CHEST IV Amt: 120 ml optiray 350 EXAM: CT Angiography Chest With Intravenous Contrast CLINICAL HISTORY: Reason for exam: PE. TECHNIQUE: Axial computed tomographic angiography images of the chest with intravenous contrast. CTDI is 30 mGy and DLP is 384.18 mGy-cm. Automated exposure control was utilized for the study. A dose lowering technique was utilized adhering to the principles of ALARA. MIP reconstructed images were created and reviewed. COMPARISON: None FINDINGS: Pulmonary arteries: Unremarkable. No pulmonary embolus identified. Aorta: No aortic aneurysm or dissection. Atherosclerotic changes in aorta. Lungs: Consolidations in the lower lobes, concerning for atelectasis and pneumonia. Probable atelectasis in the right middle lobe and lingula. Bronchial wall thickening is concerning for bronchitis. Probable mucus impaction and left greater than right lower lobe bronchi. Mild scarring of the lung apices. Pleural space: Unremarkable. No significant effusion. No pneumothorax. Heart: Unremarkable. No cardiomegaly. No significant pericardial effusion. No evidence of RV dysfunction. Bones/joints: Degenerative changes of the spine. No acute fracture. No dislocation. Soft tissues: Unremarkable. Lymph nodes: Unremarkable. No enlarged lymph nodes. IMPRESSION: 1. No pulmonary embolus identified. 2. Consolidations in the lower lobes, concerning for atelectasis and pneumonia. Probable atelectasis in the right middle lobe and lingula. 3. Bronchial wall thickening is concerning for bronchitis. Probable mucus impaction and left greater than right lower lobe bronchi. 4. No aortic aneurysm or dissection. Atherosclerotic changes in aorta. Electronically signed by: Mark Krueger M.D. 07/07/23 20:21 PM
[2023-07-08] MEDS: predniSONE 20 MG TAB PO SCH (13:59)
[2023-07-08] MEDS: IPRATROPIUM BROMIDE NEB SOLN 0.02% 2.5 ML VIAL INH SCH (19:19)
[2023-07-08] MEDS: LEVALBUTEROL 1.25 MG/3 ML NEB NEB SCH (19:19)
[2023-07-09] MEDS: DOXYCYCLINE HYCLATE 100 MG in DEXTROSE 5% MINI-B 100 ML IV SCH ×2 (01:08→12:34)
[2023-07-09 06:38] LABS: Basophils # (auto) 0.02 K/uL (0.00-0.20); Basophils % (auto) 0.1 %; Hematocrit (blood only) 35.8 % (37.0-47.0); Immature Granulocytes # (auto) 0.11 K/uL (0.01-0.20); Immature Granulocytes % (auto) 0.6 %; Lymphocytes # (auto) 1.22 K/uL (1.20-3.40); Lymphocytes % (auto) 6.9 %; Mean Corpuscular Hemoglobin 28.2 pg (25.0-34.0); Mean Corpuscular Hgb Conc 33.5 g/dL (32.0-36.0); Mean Platelet Volume 9.2 fL (9.4-12.4); Neutrophils # (auto) 15.65 K/uL (1.40-6.50); Neutrophils % (auto) 88.4 %; Platelet Count 227 K/uL (130-400); RDW Coefficient of Variation 12.6 % (11.5-14.5); RDW Standard Deviation 38.4 fL (36.4-46.3); Red Blood Count 4.26 M/uL (4.20-5.40)
[2023-07-09 07:00] LABS: BUN Creatinine Ratio 21.3 (10-20); Calcium 9.6 mg/dl (8.6-10.3); Creatinine Clr Calc Pharmacy 64.8 ml/min; Est GFR (Non-African American) 76.8 ml/min; Potassium 3.6 mmol/L (3.5-5.1)
[2023-07-09] MEDS: SODIUM CHLOR 7% 4 ML NEB NEB SCH ×2 (07:11→19:22)
[2023-07-09] MEDS: LEVALBUTEROL 1.25 MG/3 ML NEB NEB SCH (07:11)
[2023-07-09] MEDS: IPRATROPIUM BROMIDE NEB SOLN 0.02% 2.5 ML VIAL INH SCH (07:12)
[2023-07-09] MEDS: METHADONE ORAL SOLN 2 MG/ML PO SCH (08:27)
[2023-07-09] MEDS: PATIENT'S OWN CONTROLLED MED 1 PO SCH (08:29)
[2023-07-09] MEDS: predniSONE 20 MG TAB PO SCH (08:30)
[2023-07-09] MEDS: cefTRIAXone SODIUM 2,000 MG in DEXTROSE 5% 50 ML IV SCH (08:33)
--- NOTE | 2023-07-09 15:49 | Hospitalist Progress Note ---
Date of Service July 09, 2023 Assessment & Plan (1) Hypoxia: Plan: 68-year-old female with history of ongoing tobacco abuse and says she is on methadone as she used to do heroin and currently not doing it since last for 5 years as per patient ,comes today because of shortness of breath and cough going on for for last 4 to 5 days. Bringing phlegm. She was hypoxic on room air 85%. Acute hypoxic respiratory failure Pneumonia Possible COPD exacerbation 68-year-old female with history of ongoing tobacco abuse presents with shortness of breath and cough for 4 days Chest x-ray personally reviewed; left basilar opacity present CTA chest personally reviewed; consolidation in lower lobes concerning for atelectasis and pneumonia. Mucus impaction present as well EKG personally reviewed; sinus tachycardia; diffuse and nonspecific ST changes. QTc of 465 Continue on ipratropium and levalbuterol nebs twice daily along with hypertonic saline for airway clearance Started on ceftriaxone and doxycycline for the pneumonia Wean down oxygen as needed Will need outpatient pulmonology referral. Prednisone for 5 days Tobacco abuse Needs counseling Will need to follow-up with PCP regarding tobacco use disorder. History of heroin abuse She is currently on methadone Pharmacy confirmed the dose DVT prophylaxis Lovenox Disposition med/telemetry Full code Plan Patient is a 68 yr female with H/O ongoing tobacco abuse and says she is on methadone as she used to do heroin and currently not doing it since last for 5 years as per patient ,comes today because of shortness of breath and cough going on for for last 4 to 5 days. She was hypoxic on room air 85%. Acute hypoxicrespiratory failure Pneumonia Possible COPD exacerbation Ongoing tobacco abuse Possible mucus impaction --CTA:No pulmonary embolus identified. Consolidations in the lower lobes, concerning for atelectasis and pneumonia. Probable atelectasis in the right middle lobe and lingula. Bronchial wall thickening is concerning for bronchitis. Probable mucus impaction and left greater than right lower lobe bronchi. No aortic aneurysm or dissection. Atherosclerotic changes in aorta. -- Continue ceftriaxone, doxycycline Continue nebs, prednisone Continue supplemental oxygen as needed Pulmonary hygiene Will consider pulmonary evaluation if no improvement Will need PFTs as outpatient Will need 2 step prior to discharge CXR today pending Hypokalemia Replete electrolytes as needed Monitor Tobacco abuse Counseled to quit smoking H/O Heroin abuse on methadone Pharmacy confirmed the dose DVT Px: Lovenox SQ Code Status Full code Admission and Anticipated Discharge Date Admission Date: July 07, 2023 Subjective Patient is seen and examined at bedside States having cough, wheezing intermittently Denies any chest pain, dyspnea Desaturating easily with minimal exertion Offers no other complaints Review of Systems Review of Systems: All systems reviewed & are unremarkable except as noted in Subjective Physical Exam Physical Exam: Physical Exam: Vitals signs as noted above General Appearance:Moderately built and nourished, no apparent distress Head: normocephalic, Atraumatic Eyes: normal inspection, EOMI Neck: supple, Trachea midline Respiratory/Chest: Decreased breath sounds, scattered rhonchi/wheezing, No accessory muscle use Cardiovascular: S1, S2, No murmur Abdomen/GI:Soft, Non tender, Bowel sounds present Extremities/Musculoskeletal:normal inspection, no edema Neurologic/Psych:AAOX3, grossly no focal neurological deficits Skin: normal color, warm Results & Data Results & Data Vital Signs (Past 12 Hours) Vital Signs Temp Pulse Pulse Resp BP Pulse Ox O2 Del Method 07/09/23 14:09 36.5 C 70 18 104/47 L 92 Nasal Cannula 07/09/23 13:27 High Flow Nasal Cannula 07/09/23 08:00 Nasal Cannula 07/09/23 11:15 79 20 92 Nasal Cannula 07/09/23 10:50 36.9 C 80 19 114/63 80 L Nasal Cannula 07/09/23 07:58 65 07/09/23 07:12 70 18 92 Nasal Cannula 07/09/23 07:06 68 18 115/59 L 89 L Nasal Cannula O2 Flow Rate 07/09/23 14:09 6 07/09/23 13:27 15 07/09/23 08:00 5 07/09/23 11:15 15 07/09/23 10:50 6 07/09/23 07:58 07/09/23 07:12 5 07/09/23 07:06 5 Laboratory Results Short CBC 07/09/23 Range/Units 06:24 WBC 17.70 H (4.8-10.8) K/ul Hgb 12.0 (12.0-16.0) g/dl Hct 35.8 L (37.0-47.0) % Plt Count 227 (130-400) K/uL BMP 07/09/23 06:24 Sodium 138 Potassium 3.6 Chloride 101 Carbon Dioxide 30 BUN 17 Creatinine 0.80 Glucose 120 H Calcium 9.6
--- NOTE | 2023-07-09 17:12 | XRay Report ---
XR chest 1V portable CLINICAL HISTORY: Hypoxia. COMPARISON STUDY: Chest CT July 07, 2023. FINDINGS: There is no pneumothorax. Trace bilateral pleural effusions are present. There is no eviden ce for pulmonary edema. Cardiomediastinal silhouette is stable. Bibasilar consolidation persists. IMPRESSION: 1. Persistent bibasilar consolidation suggestive of pneumonia or aspiration pneumonitis. 2. Trace bilateral pleural effusions. ACT 112: Negative or not required by law. Electronically signed by: Saurabh Patterson M.D. 07/09/2023 5:11 PM
[2023-07-09] MEDS: ALBUT/IPRATROP 3MG/0.5MG NEB 3 ML VIAL NEB SCH (19:22)
[2023-07-09] MEDS: guaiFENesin 600 MG TABCR PO SCH (20:00)
[2023-07-09] MEDS: ENOXAPARIN INJ 40 MG/0.4 ML SYR SQ SCH (20:00)
[2023-07-09] MEDS: NICOTINE 21 MG/24 HR TDSY TD SCH (21:49)
[2023-07-10] MEDS: DOXYCYCLINE HYCLATE 100 MG in DEXTROSE 5% MINI-B 100 ML IV SCH ×3 (00:53→23:49)
[2023-07-10 07:12] LABS: Hematocrit (blood only) 37.5 % (37.0-47.0); Hemoglobin 12.6 g/dl (12.0-16.0); Mean Corpuscular Hemoglobin 28.4 pg (25.0-34.0); Mean Corpuscular Hgb Conc 33.6 g/dL (32.0-36.0); Mean Corpuscular Volume 84.7 fL (80.0-100.0); Mean Platelet Volume 9.2 fL (9.4-12.4); Platelet Count 281 K/uL (130-400); RDW Standard Deviation 40.5 fL (36.4-46.3); Red Blood Count 4.43 M/uL (4.20-5.40); White Blood Count 12.56 K/ul (4.8-10.8)
[2023-07-10] MEDS: SODIUM CHLOR 7% 4 ML NEB NEB SCH ×2 (07:19→19:59)
[2023-07-10] MEDS: ALBUT/IPRATROP 3MG/0.5MG NEB 3 ML VIAL NEB SCH ×4 (07:31→20:05)
[2023-07-10 07:41] LABS: Calcium 9.8 mg/dl (8.6-10.3); Magnesium 2.1 mg/dl (1.7-2.4); Potassium 3.7 mmol/L (3.5-5.1)
[2023-07-10 07:46] LABS: BUN Creatinine Ratio 20.7 (10-20); Creatinine Clr Calc Pharmacy 59.5 ml/min; Est GFR (African American) 80.5 ml/min; Est GFR (Non-African American) 69.4 ml/min
[2023-07-10] MEDS: METHADONE ORAL SOLN 2 MG/ML PO SCH (07:46)
[2023-07-10] MEDS: PATIENT'S OWN CONTROLLED MED 1 PO SCH (07:46)
[2023-07-10] MEDS: guaiFENesin 600 MG TABCR PO SCH ×2 (07:47→20:41)
[2023-07-10] MEDS: predniSONE 20 MG TAB PO SCH (07:47)
[2023-07-10] MEDS: cefTRIAXone SODIUM 2,000 MG in DEXTROSE 5% 50 ML IV SCH (07:57)
[2023-07-10 10:26] LABS: Base Excess ABG 4.2 mEq/L (-9-1.8); HCO3 ABG 29 mmol/L (19-24); PCO2 ABG 44 mmHg (35-46); PO2 ABG 66 mmHg (80-95); pH ABG 7.43 (7.35-7.45)
[2023-07-10 11:33] LABS: Allen Test Pos (Pos)
--- NOTE | 2023-07-10 12:52 | Pulmonary Consultation ---
Date of Consultation July 10, 2023 Assessment & Plan (1) Multifocal pneumonia: (2) Acute respiratory failure with hypoxia: (3) COPD (chronic obstructive pulmonary disease): (4) Community acquired pneumonia: (5) Methadone dependence: Plan CT chest 07/07/2023 personally reviewed: Consolidative process appreciated bilaterally lower lobes especially on the left side Minimal bilateral apical pleural scarring more on the right side No significant mediastinal lymphadenopathy --Chronic hypoxic respiratory failure Multifactorial Multilobar pneumonia along with COPD exacerbation -- Multilobar pneumonia Procalcitonin 0.09 COVID-19, influenza A/B, RSV all negative -- COPD Not on maintenance inhalers at home Recommend Trelegy/BrezTri inhaler to be used on a daily basis at home -- Current smoker > 50 pack-year smoking history, currently smoking a pack a day Importance of quitting explained the patient in depth --Chronic methadone dependence Need to always rule out aspiration in patients who are chronically dependent on methadone Plan: Continue with antibiotics Mucinex, flutter valve as well as hypertonic saline nebulized I will add Brovana and budesonide to the regimen Incentive spirometry will also be beneficial. Case was discussed with Dr. Louis Please note the above document was generated using voice recognition software. It may contain grammatical, syntax or spelling errors.Any formal questions or concerns about the content, text or information contained within the body of this dictation should be directly addressed to the provider for clarification. History of Present Illness Attending Physician: Erasto Louis MD History of Present Illness 68-year-old female present to the hospital with complaints of shortness of breath Past medical history: Chronic methadone with history of heroin abuse Pulmonary consulted for hypoxia At the time of examination patient was getting breathing treatment. She was not in any respiratory distress. Saturating 100%. Breathing in the mid teens. Has been complaining of cough and bringing up clear phlegm. Denies any hemopty sis Phlegm is usually clear to yellow in color. Right now she is able to bring up the phlegm. She was congested when she was at home. No night sweats, no unintentional weight loss Denies any headache, no blurry vision No difficulty swallowing Social history: Greater than [id number] smoking history, currently smoking a pack a day. 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 No history of lung cancer in the family Allergies Allergy/AdvReac Type Severity Reaction Status Date / Time No Known Allergies Allergy Unknown Unverified 07/08/16 12:46 Home Medications Medication Instructions Recorded Confirmed Type albuterol sulfate 90 mcg/actuation 2 puff inhalation Q4H PRN 07/07/23 07/07/23 History aerosol inhaler Shortness Of Breath Or Wheezing Patient History Medical History (Updated 07/10/23 @ 13:45 by Chavez Larsen MD, [facility]) Partial traumatic transphalangeal amputation of finger Social History Smoking Status: Current every day smoker Tobacco Type: Cigarettes Second Hand Exposure: No; Do You Dip or Chew Tobacco: No; Tobacco Cessation Education Requested by Patient: No Hx Alcohol Use: No Preferred Language: Mohawk Communication Ability: Effective Director Of Student Aid Required: No Beliefs That Will Affect Care: None Current Living Situation: Family Other Information That Helps Us Care for You: No Feels Safe at Home: Yes Safety Concerns: Feels Safe At This Time Assistive Devices: None Review of Systems Review of Systems: All systems reviewed & are unremarkable except as noted in HPI & below Physical Exam Physical Exam: Constitutional: No acute distress HEENT: EOMI, PERRLA Respiratory system: Decreased air entry bilaterally, no wheeze, no rhonchi, positive crackles bilateral lower lobes CVS: S1-S2 positive, no murmurs or gallops Abdomen: Soft, nontender, nondistended, positive bowel sounds x4 Extremities: +2 pulses bilaterally radialis/ dorsalis pedis, no cyanosis, +1 pitting edema bilateral lower extremity Neuro: Awake alert oriented x3 Psych: Normal mood and affect G/U: No Cota Skin: no rashes, warm and dry Lymphatic: no cervical or axillary lymphadenopathy Results & Data Results & Data Vital Signs (Past 12 Hours) Vital Signs Temp Pulse Pulse Resp BP Pulse Ox Pulse Ox 07/10/23 11:09 36.8 C 88 18 133/61 90 07/10/23 11:02 88 18 90 07/10/23 08:00 70 07/10/23 08:00 07/10/23 07:26 36.6 C 96 H 18 146/76 H 96 07/10/23 07:20 70 18 91 07/10/23 03:43 36.7 C 71 18 125/65 92 07/10/23 03:02 92 O2 Del Method O2 Del Method O2 Flow Rate O2 Flow Rate 07/10/23 11:09 Nasal Cannula 9.0 07/10/23 11:02 Nasal Cannula 9 07/10/23 08:00 07/10/23 08:00 High Flow Nasal Cannula 6 07/10/23 07:26 Nasal Cannula 9 07/10/23 07:20 Nasal Cannula 9 07/10/23 03:43 High Flow Nasal Cannula 6 07/10/23 03:02 High Flow Nasal Cannula 6 Laboratory Results 07/10/23 06:39 07/10/23 06:39 PG Care Time/CCT Total # of Minutes Spent Total Time Spent with Patient: Total time spent is greater than 50% in coordination of care (as documented) at patient's floor/unit and/or counseling patient: [place] [address] INT INP/OBS CARE 3/75MIN Patient Type New Diagnoses Multifocal pneumonia J18.9 Acute respiratory failure with hypoxia J96.01 COPD (chronic obstructive pulmonary disease) J44.9 Community acquired pneumonia J18.9 Methadone dependence F11.20
[2023-07-10] MEDS: FORMOTEROL 20 MCG/2 ML VIAL NEB SCH ×2 (13:20→19:59)
[2023-07-10] MEDS: BUDESONIDE 0.25 MG/2 ML VIAL (PULMICORT) NEB SCH ×2 (13:20→19:59)
--- NOTE | 2023-07-10 15:29 | Hospitalist Progress Note ---
Date of Service July 10, 2023 Assessment & Plan (1) Hypoxia: Plan: 68-year-old female with history of ongoing tobacco abuse and says she is on methadone as she used to do heroin and currently not doing it since last for 5 years as per patient ,comes today because of shortness of breath and cough going on for for last 4 to 5 days. Bringing phlegm. She was hypoxic on room air 85%. Acute hypoxic respiratory failure Pneumonia Possible COPD exacerbation -CTA:No pulmonary embolus identified. Consolidations in the lower lobes, concerning for atelectasis and pneumonia. Probable atelectasis in the right middle lobe and lingula. Bronchial wall thickening is concerning for bronchitis. Probable mucus impaction and left greater than right lower lobe bronchi. No aortic aneurysm or dissection. Atherosclerotic changes in aorta. 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 She was hypoxic on room air 85%. Acute hypoxicrespiratory failure Pneumonia Possible COPD exacerbation Ongoing tobacco abuse Possible mucus impaction --CTA:No pulmonary embolus identified. Consolidations in the lower lobes, con cerning for atelectasis and pneumonia. Probable atelectasis in the right middle lobe and lingula. Bronchial wall thickening is concerning for bronchitis. Probable mucus impaction and left greater than right lower lobe bronchi. No aortic aneurysm or dissection. Atherosclerotic changes in aorta. -- Continue ceftriaxone, doxycycline Continue nebs, prednisone Continue supplemental oxygen as needed Pulmonary hygiene Will consider pulmonary evaluation if no improvement Will need PFTs as outpatient Will need 2 step prior to discharge CXR today pending Hypokalemia Replete electrolytes as needed Monitor Tobacco abuse Counseled to quit smoking H/O Heroin abuse on methadone Pharmacy confirmed the dose DVT Px: Lovenox SQ Code Status Full code Admission and Anticipated Discharge Date Admission Date: July 07, 2023 Subjective Patient is seen and examined at bedside States having cough, wheezing intermittently Denies any chest pain, dyspnea Desaturating easily with minimal exertion Offers no other complaints Review of Systems Review of Systems: All systems reviewed & are unremarkable except as noted in Subjective Physical Exam Physical Exam: Physical Exam: Vitals signs as noted above General Appearance:Moderately built and nourished, no apparent distress Head: normocephalic, Atraumatic Eyes: normal inspection, EOMI Neck: supple, Trachea midline Respiratory/Chest: Decreased breath sounds, minimal basal crackles, No accessory muscle use Cardiovascular: S1, S2, No murmur Abdomen/GI:Soft, Non tender, Bowel sounds present Extremities/Musculoskeletal:normal inspection, no edema Neurologic/Psych:AAOX3, grossly no focal neurological deficits Skin: normal color, warm Results & Data Results & Data Vital Signs (Past 12 Hours) Vital Signs Temp Pulse Pulse Resp BP Pulse Ox O2 Del Method 07/10/23 15:21 78 18 90 Nasal Cannula 07/10/23 15:06 36.6 C 87 18 126/67 90 Nasal Cannula 07/10/23 13:21 87 18 92 Nasal Cannula 07/10/23 11:09 36.8 C 88 18 133/61 90 Nasal Cannula 07/10/23 11:02 88 18 90 Nasal Cannula 07/10/23 08:00 70 07/10/23 08:00 High Flow Nasal Cannula 07/10/23 07:26 36.6 C 96 H 18 146/76 H 96 Nasal Cannula 07/10/23 07:20 70 18 91 Nasal Cannula 07/10/23 03:43 36.7 C 71 18 125/65 92 High Flow Nasal Cannula O2 Flow Rate 07/10/23 15:21 9 07/10/23 15:06 9.0 07/10/23 13:21 9 07/10/23 11:09 9.0 07/10/23 11:02 9 07/10/23 08:00 07/10/23 08:00 6 07/10/23 07:26 9 07/10/23 07:20 9 07/10/23 03:43 6 Laboratory Results Short CBC 09/21/23 Range/Units 06:39 WBC 12.56 H (4.8-10.8) K/ul Hgb 12.6 (12.0-16.0) g/dl Hct 37.5 (37.0-47.0) % Plt Count 281 (130-400) K/uL [facility] 07/10/23 06:39 Sodium 136 Potassium 3.7 Chloride 100 Carbon Dioxide 33 H BUN 18 Creatinine 0.87 Glucose 92 Calcium 9.8
[2023-07-10] MEDS: ENOXAPARIN INJ 40 MG/0.4 ML SYR SQ SCH (20:39)
[2023-07-10] MEDS: NICOTINE 21 MG/24 HR TDSY TD SCH (20:42)
[2023-07-11 06:52] LABS: Hematocrit (blood only) 35.7 % (37.0-47.0); Hemoglobin 11.8 g/dl (12.0-16.0); Mean Corpuscular Hgb Conc 33.1 g/dL (32.0-36.0); Mean Corpuscular Volume 84.6 fL (80.0-100.0); Mean Platelet Volume 8.7 fL (9.4-12.4); Platelet Count 263 K/uL (130-400); RDW Standard Deviation 39.9 fL (36.4-46.3); Red Blood Count 4.22 M/uL (4.20-5.40); White Blood Count 8.08 K/ul (4.8-10.8)
[2023-07-11] MEDS: FORMOTEROL 20 MCG/2 ML VIAL NEB SCH ×2 (06:53→19:19)
[2023-07-11] MEDS: BUDESONIDE 0.25 MG/2 ML VIAL (PULMICORT) NEB SCH ×2 (06:53→19:19)
[2023-07-11] MEDS: SODIUM CHLOR 7% 4 ML NEB NEB SCH ×2 (06:53→19:19)
[2023-07-11 07:12] LABS: Calcium 9.5 mg/dl (8.6-10.3); Creatinine Clr Calc Pharmacy 60.9 ml/min; Est GFR (African American) 82.8 ml/min; Est GFR (Non-African American) 71.4 ml/min; Potassium 3.4 mmol/L (3.5-5.1)
[2023-07-11] MEDS: ALBUT/IPRATROP 3MG/0.5MG NEB 3 ML VIAL NEB SCH ×4 (07:42→19:19)
[2023-07-11] MEDS: METHADONE ORAL SOLN 2 MG/ML PO SCH (08:16)
[2023-07-11] MEDS: PATIENT'S OWN CONTROLLED MED 1 PO SCH (08:16)
[2023-07-11] MEDS: cefTRIAXone SODIUM 2,000 MG in DEXTROSE 5% 50 ML IV SCH (08:16)
[2023-07-11] MEDS: guaiFENesin 600 MG TABCR PO SCH ×2 (08:19→21:02)
[2023-07-11] MEDS: predniSONE 20 MG TAB PO SCH (08:20)
--- NOTE | 2023-07-11 08:30 | Pulmonology Progress Note ---
Date of Service July 11, 2023 Assessment & Plan (1) Multifocal pneumonia: (2) Acute respiratory failure with hypoxia: (3) COPD (chronic obstructive pulmonary disease): (4) Community acquired pneumonia: (5) Methadone dependence: Plan CT chest 07/07/2023 personally reviewed: Consolidative process appreciated bilaterally lower lobes especially on the left side Minimal bilateral apical pleural scarring more on the right side No significant mediastinal lymphadenopathy --Chronic hypoxic respiratory failure Multifactorial Multilobar pneumonia along with COPD exacerbation -- Multilobar pneumonia Procalcitonin 0.09 COVID-19, influenza A/B, RSV all negative -- COPD Not on maintenance inhalers at home Recommend Trelegy/BrezTri inhaler to be used on a daily basis at home -- Current smoker > 50 pack-year smoking history, currently smoking a pack a day Importance of quitting explained the patient in depth --Chronic methadone dependence Need to always rule out aspiration in patients who are chronically dependent on methadone Plan: Continue with antibiotics Mucinex, flutter valve as well as hypertonic saline nebulized. I will add Mucomyst nebulized to the regimen Continue with nebulized Perforomist and budesonide Incentive spirometry will also be beneficial. Case was discussed with Dr. Louis and RT Please note the above document was generated using voice recognition software. It may contain grammatical, syntax or spelling errors.Any formal questions or concerns about the content, text or information contained within the body of this dictation should be directly addressed to the provider for clarification. Admission and Anticipated Discharge Date Admission Date: July 07, 2023 Subjective Patient seen and examined at bedside. No acute distress, no adverse events overnight She was saturating 86% on 8 L nasal cannula. I went up to 10 L. Has been using incentive spirometer as well as flutter valve. Bringing up clear phlegm Denies any chest pain. No nausea or vomiting Fair appetite Review of Systems Review of Systems: All systems reviewed & are unremarkable except as noted in Subjective Physical Exam Physical Exam: Constitutional: No acute distress HEENT: EOMI, PERRLA Respiratory system: Decreased air entry bilaterally, no wheeze, no rhonchi, positive crackles bilateral lower lobes CVS: S1-S2 positive, no murmurs or gallops Abdomen: Soft, nontender, nondistended, positive bowel sounds x4 Extremities: +2 pulses bilaterally radialis/ dorsalis pedis, no cyanosis, +1 pitting edema bilateral lower extremity Neuro: Awake alert oriented x3 Psych: Normal mood and affect G/U: No Cota Skin: no rashes, warm and dry Lymphatic: no cervical or axillary lymphadenopathy Results & Data Results & Data Vital Signs (Past 12 Hours) Vital Signs Temp Pulse Pulse Resp BP Pulse Ox Pulse Ox 07/11/23 07:54 62 07/11/23 07:54 07/11/23 06:54 96 H 18 93 07/11/23 03:00 95 07/11/23 03:24 36.7 C 68 19 118/60 93 07/10/23 22:52 36.5 C 69 19 117/63 94 07/10/23 20:32 O2 Del Method O2 Del Method O2 Flow Rate O2 Flow Rate FiO2 07/11/23 07:54 07/11/23 07:54 High Flow Nasal Cannula 8 07/11/23 06:54 Nasal Cannula 8 07/11/23 03:00 High Flow Nasal Cannula 9 07/11/23 03:24 High Flow Nasal Cannula 8 07/10/23 22:52 High Flow Nasal Cannula 8 07/10/23 20:32 High Flow Nasal Cannula 9 Laboratory Results 07/11/23 06:38 07/11/23 06:38 PG Care Time/CCT Total # of Minutes Spent Total Time Spent with Patient: Total time spent is greater than 50% in coordination of care (as documented) at patient's floor/unit and/or counseling patient: Coding Level of Care Code 54331 SUB INP/OBS CARE 3/50MIN Diagnoses Multifocal pneumonia J18.9 Acute respiratory failure with hypoxia J96.01 COPD (chronic obstructive pulmonary disease) J44.9 Community acquired pneumonia J18.9 Methadone dependence F11.20
[2023-07-11] MEDS ORDERED: POTASSIUM CHLORIDE CRTAB 20 MEQ TABCR PO ONE (08:40)
[2023-07-11] MEDS: DOXYCYCLINE HYCLATE 100 MG CAP PO SCH ×2 (10:42→21:04)
[2023-07-11] MEDS ORDERED: ACETYLCYSTEINE 20% INHAL SOLN 4ML ***DISPENSED BY RESP. INH SCH (12:00)
--- NOTE | 2023-07-11 15:05 | Hospitalist Progress Note ---
Date of Service July 11, 2023 Assessment & Plan (1) Hypoxia: Plan: 68-year-old female with history of ongoing tobacco abuse and says she is on methadone as she used to do heroin and currently not doing it since last for 5 years as per patient ,comes today because of shortness of breath and cough going on for for last 4 to 5 days. Bringing phlegm. She was hypoxic on room air 85%. Acute hypoxic respiratory failure Pneumonia Acute COPD exacerbation -CTA:No pulmonary embolus identified. Consolidations in the lower lobes, concerning for atelectasis and pneumonia. Probable atelectasis in the right middle lobe and lingula. Bronchial wall thickening is concerning for bronchitis. Probable mucus impaction and left greater than right lower lobe bronchi. No aortic aneurysm or dissection. Atherosclerotic changes in aorta. 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 She was hypoxic on room air 85%. Acute hypoxicrespiratory failure Pneumonia Possible COPD exacerbation Ongoing tobacco abuse Possible mucus impaction --CTA:No pulmonary embolus identified. Consolidations in the lower lobes, concerning for atelectasis and pneumonia. Probable atelectasis in the right middle lobe and lingula. Bronchial wall thickening is concerning for bronchitis. Probable mucus impaction and left greater than right lower lobe bronchi. No aortic aneurysm or dissection. Atherosclerotic changes in aorta. -- Continue ceftriaxone, doxycycline Continue nebs, prednisone Continue supplemental oxygen as needed Pulmonary hygiene Will consider pulmonary evaluation if no improvement Will need PFTs as outpatient Will need 2 step prior to discharge CXR today pending Hypokalemia Replete electrolytes as needed Monitor Tobacco abuse Counseled to quit smoking H/O Heroin abuse on methadone Pharmacy confirmed the dose DVT Px: Lovenox SQ Code Status Full code Admission and Anticipated Discharge Date Admission Date: July 07, 2023 Subjective Patient is seen and examined at bedside States having some cough with yellowish expectoration Also reports minimal hemoptysis intermittently No other complaints Saturating low 90s on 8 L supplemental oxygen Denies any chest pain, dizziness, nausea, vomiting, abdominal pain Review of Systems Review of Systems: All systems reviewed & are unremarkable except as noted in Subjective Physical Exam Physical Exam: Physical Exam: Vitals signs as noted above General Appearance:Moderately built and nourished, no apparent distress Head: normocephalic, Atraumatic Eyes: normal inspection, EOMI Neck: supple, Trachea midline Respiratory/Chest: Decreased breath sounds, minimal basal crackles, No accessory muscle use Cardiovascular: S1, S2, No murmur Abdomen/GI:Soft, Non tender, Bowel sounds present Extremities/Musculoskeletal:normal inspection, no edema Neurologic/Psych:AAOX3, grossly no focal neurological deficits Skin: normal color, warm Results & Data Results & Data Vital Signs (Past 12 Hours) Vital Signs Temp Pulse Pulse Resp BP BP Pulse Ox 07/11/23 11:29 36.3 C L 73 18 131/61 91 07/11/23 11:06 73 18 91 07/11/23 08:38 91 07/11/23 07:45 36.5 C 86 20 136/74 90 07/11/23 07:54 62 07/11/23 07:54 07/11/23 06:54 96 H 18 93 07/11/23 03:24 36.7 C 68 19 118/60 93 O2 Del Method O2 Flow Rate FiO2 07/11/23 11:29 Nasal Cannula 8.0 07/11/23 11:06 Nasal Cannula 8 07/11/23 08:38 Nasal Cannula 8 07/11/23 07:45 Nasal Cannula 8.0 07/11/23 07:54 07/11/23 07:54 High Flow Nasal Cannula 8 07/11/23 06:54 Nasal Cannula 8 07/11/23 03:24 High Flow Nasal Cannula 8 Laboratory Results Short CBC 07/11/23 Range/Units 06:38 WBC 8.08 (4.8-10.8) K/ul Hgb 11.8 L (12.0-16.0) g/dl Hct 35.7 L (37.0-47.0) % Plt Count 263 (130-400) K/uL [facility] 07/11/23 06:38 Sodium 139 Potassium 3.4 L Chloride 101 Carbon Dioxide 33 H BUN 17 Creatinine 0.85 Glucose 87 Calcium 9.5
[2023-07-11] MEDS: ACETYLCYSTEINE 20% INHAL SOLN 4ML ***DISPENSED BY RESP. INH SCH (19:19)
[2023-07-11] MEDS: NICOTINE 21 MG/24 HR TDSY TD SCH (21:03)
[2023-07-11] MEDS: ENOXAPARIN INJ 40 MG/0.4 ML SYR SQ SCH (21:03)
[2023-07-12] MEDS: ALBUT/IPRATROP 3MG/0.5MG NEB 3 ML VIAL NEB SCH ×4 (07:03→20:08)
[2023-07-12] MEDS: BUDESONIDE 0.25 MG/2 ML VIAL (PULMICORT) NEB SCH ×2 (07:03→19:33)
[2023-07-12] MEDS: FORMOTEROL 20 MCG/2 ML VIAL NEB SCH ×2 (07:03→19:32)
[2023-07-12] MEDS: ACETYLCYSTEINE 20% INHAL SOLN 4ML ***DISPENSED BY RESP. INH SCH ×3 (07:03→20:53)
[2023-07-12] MEDS: SODIUM CHLOR 7% 4 ML NEB NEB SCH ×2 (07:04→19:32)
[2023-07-12 07:26] LABS: Hematocrit (blood only) 39.5 % (37.0-47.0); Hemoglobin 12.7 g/dl (12.0-16.0); Mean Corpuscular Hemoglobin 27.5 pg (25.0-34.0); Mean Corpuscular Hgb Conc 32.2 g/dL (32.0-36.0); Mean Corpuscular Volume 85.7 fL (80.0-100.0); Mean Platelet Volume 8.8 fL (9.4-12.4); Platelet Count 287 K/uL (130-400); RDW Coefficient of Variation 12.6 % (11.5-14.5); RDW Standard Deviation 39.3 fL (36.4-46.3); Red Blood Count 4.61 M/uL (4.20-5.40); White Blood Count 7.79 K/ul (4.8-10.8)
[2023-07-12 07:54] LABS: BUN Creatinine Ratio 20.5 (10-20); Calcium 9.6 mg/dl (8.6-10.3); Creatinine Clr Calc Pharmacy 62.4 ml/min; Est GFR (African American) 85.2 ml/min; Est GFR (Non-African American) 73.5 ml/min; Potassium 3.7 mmol/L (3.5-5.1)
[2023-07-12] MEDS: PATIENT'S OWN CONTROLLED MED 1 PO SCH (08:12)
[2023-07-12] MEDS: METHADONE ORAL SOLN 2 MG/ML PO SCH (08:12)
[2023-07-12] MEDS: guaiFENesin 600 MG TABCR PO SCH ×2 (08:12→20:58)
[2023-07-12] MEDS: cefTRIAXone SODIUM 2,000 MG in DEXTROSE 5% 50 ML IV SCH (08:12)
[2023-07-12] MEDS: DOXYCYCLINE HYCLATE 100 MG CAP PO SCH ×2 (08:59→20:59)
--- NOTE | 2023-07-12 13:51 | Pulmonology Progress Note ---
Date of Service July 12, 2023 Assessment & Plan (1) Multifocal pneumonia: (2) Acute respiratory failure with hypoxia: (3) COPD (chronic obstructive pulmonary disease): (4) Community acquired pneumonia: (5) Methadone dependence: Plan CT chest 07/07/2023 personally reviewed: Consolidative process appreciated bilaterally lower lobes especially on the left side Minimal bilateral apical pleural scarring more on the right side No significant mediastinal lymphadenopathy --Chronic hypoxic respiratory failure Multifactorial Multilobar pneumonia along with COPD exacerbation -- Multilobar pneumonia Procalcitonin 0.09 COVID-19, influenza A/B, RSV all negative -- COPD Not on maintenance inhalers at home Recommend Trelegy/BrezTri inhaler to be used on a daily basis at home -- Current smoker > 50 pack-year smoking history, currently smoking a pack a day Importance of quitting explained the patient in depth --Chronic methadone dependence Need to always rule out aspiration in patients who are chronically dependent on methadone Plan: Complete the course of antibiotics for 7 days Mucinex, flutter valve as well as hypertonic saline as well as Mucomyst nebulized Continue with nebulized Perforomist and budesonide Incentive spirometry will also be beneficial. Case was discussed with Dr. Louis and RT Please note the above document was generated using voice recognition software. It may contain grammatical, syntax or spelling errors.Any formal questions or concerns about the content, text or information contained within the body of this dictation should be directly addressed to the provider for clarification. Admission and Anticipated Discharge Date Admission Date: July 07, 2023 Subjective Patient seen and examined at bedside. No acute distress, no adverse events overnight. Patient was saturating 91% on 7 L nasal cannula. Not in any respiratory distress Overall she says she is feeling better. She has been using flutter valve. Bringing up some phlegm. Denies any hemoptysis Fair appetite. No nausea vomiting Review of Systems Review of Systems: All systems reviewed & are unremarkable except as noted in Subjective Physical Exam Physical Exam: Constitutional: No acute distress HEENT: EOMI, PERRLA Respiratory system: Decreased air entry bilaterally, no wheeze, no rhonchi, positive crackles bilateral lower lobes CVS: S1-S2 positive, no murmurs or gallops Abdomen: Soft, nontender, nondistended, positive bowel sounds x4 Extremities: +2 pulses bilaterally radialis/ dorsalis pedis, no cyanosis, no edema Neuro: Awake alert oriented x3 Psych: Normal mood and affect G/U: No Cota Skin: no rashes, warm and dry Lymphatic: no cervical or axillary lymphadenopathy Results & Data Results & Data Vital Signs (Past 12 Hours) Vital Signs Temp Pulse Pulse Resp BP Pulse Ox Pulse Ox 07/12/23 11:41 36.5 C 80 18 111/61 91 07/12/23 10:50 80 16 90 07/12/23 07:53 73 07/12/23 07:53 07/12/23 07:27 36.6 C 86 16 146/73 H 91 07/12/23 07:04 78 16 91 07/12/23 03:00 92 07/12/23 03:07 36.6 C 73 20 126/64 95 O2 Del Method O2 Del Method O2 Flow Rate O2 Flow Rate 07/12/23 11:41 High Flow Nasal Cannula 8 07/12/23 10:50 Nasal Cannula 7 07/12/23 07:53 07/12/23 07:53 High Flow Nasal Cannula 8 07/12/23 07:27 Nasal Cannula 6.0 07/12/23 07:04 Nasal Cannula 6 07/12/23 03:00 High Flow Nasal Cannula 8 07/12/23 03:07 Nasal Cannula 7 Laboratory Results 07/12/23 07:00 07/12/23 07:00 PG Care Time/CCT Total # of Minutes Spent Total Time Spent with Patient: Total time spent is greater than 50% in coordination of care (as documented) at patient's floor/unit and/or counseling patient: Coding Level of Care Code 21692 SUB INP/OBS CARE 2/35MIN Diagnoses Multifocal pneumonia J18.9 Acute respiratory failure with hypoxia J96.01 COPD (chronic obstructive pulmonary disease) J44.9 Community acquired pneumonia J18.9 Methadone dependence F11.20
--- NOTE | 2023-07-12 15:54 | Hospitalist Progress Note ---
Date of Service July 12, 2023 Assessment & Plan (1) Hypoxia: Plan: Patient is 68-year-old female with history of ongoing tobacco abuse and says she is on methadone as she used to do heroin and currently not doing it since last for 5 years as per patient ,comes today because of shortness of breath and cough going on for for last 4 to 5 days. Bringing phlegm. She was hypoxic on room air 85%. Acute hypoxic respiratory failure Pneumonia Acute COPD exacerbation -CTA:No pulmonary embolus identified. Consolidations in the lower lobes, concerning for atelectasis and pneumonia. Probable atelectasis in the right middle lobe and lingula. Bronchial wall thickening is concerning for bronchitis. Probable mucus impaction and left greater than right lower lobe bronchi. No aortic aneurysm or dissection. Atherosclerotic changes in aorta. 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 She was hypoxic on room air 85%. Acute hypoxicrespiratory failure Pneumonia Possible COPD exacerbation Ongoing tobacco abuse Possible mucus impaction --CTA:No pulmonary embolus identified. Consolidations in the lower lobes, concerning for atelectasis and pneumonia. Probable atelectasis in the right middle lobe and lingula. Bronchial wall thickening is concerning for bronchitis. Probable mucus impaction and left greater than right lower lobe bronchi. No aortic aneurysm or dissection. Atherosclerotic changes in aorta. -- Continue ceftriaxone, doxycycline Continue nebs, prednisone Continue supplemental oxygen as needed Pulmonary hygiene Will consider pulmonary evaluation if no improvement Will need PFTs as outpatient Will need 2 step prior to discharge CXR today pending Hypokalemia Replete electrolytes as needed Monitor Tobacco abuse Counseled to quit smoking H/O Heroin abuse on methadone Pharmacy confirmed the dose DVT Px: Lovenox SQ Code Status Full code Admission and Anticipated Discharge Date Admission Date: July 07, 2023 Subjective Patient is seen and examined at bedside Feels better Less hemoptysis today Still requiring 7 to 8 L supplemental oxygen to maintain sats No new complaints today Reports cough with expectoration Denies any chest pain, dizziness, nausea, vomiting, abdominal pain Review of Systems Review of Systems: All systems reviewed & are unremarkable except as noted in Subjective Physical Exam Physical Exam: Physical Exam: Vitals signs as noted above General Appearance:Moderately built and nourished, no apparent distress Head: normocephalic, Atraumatic Eyes: normal inspection, EOMI Neck: supple, Trachea midline Respiratory/Chest: Decreased breath sounds, minimal basal crackles, No accessory muscle use Cardiovascular: S1, S2, No murmur Abdomen/GI:Soft, Non tender, Bowel sounds present Extremities/Musculoskeletal:normal inspection, no edema Neurologic/Psych:AAOX3, grossly no focal neurological deficits Skin: normal color, warm Results & Data Results & Data Vital Signs (Past 12 Hours) Vital Signs Temp Pulse Pulse Pulse Resp BP Pulse Ox 07/12/23 15:28 36.6 C 87 20 143/71 H 89 L 07/12/23 14:39 81 18 91 07/12/23 11:41 36.5 C 80 18 111/61 91 07/12/23 10:50 80 16 90 07/12/23 07:53 73 07/12/23 07:53 07/12/23 07:27 36.6 C 86 16 146/73 H 91 07/12/23 07:04 78 16 91 O2 Del Method O2 Flow Rate 07/12/23 15:28 Nasal Cannula 7 07/12/23 14:39 Nasal Cannula 7 07/12/23 11:41 High Flow Nasal Cannula 8 07/12/23 10:50 Nasal Cannula 7 07/12/23 07:53 07/12/23 07:53 High Flow Nasal Cannula 8 07/12/23 07:27 Nasal Cannula 6.0 07/12/23 07:04 Nasal Cannula 6
--- NOTE | 2023-07-12 19:21 | XRay Report ---
XR chest 1V portable CLINICAL HISTORY: Hypoxia TECHNIQUE: Single frontal radiograph of the chest was obtained. Comparison: Comparison is made to chest radiograph 07/09/2023 FINDINGS: No lines and tubes are seen. The cardiomediastinal silhouette is normal. The lungs are clear. Small l eft pleural effusion. IMPRESSION: Small left pleural effusion. ACT 112: Negative or not required by law. Electronically signed by: Tristan Manzano M.D. 07/12/2023 7:20 PM
[2023-07-12] MEDS: ENOXAPARIN INJ 40 MG/0.4 ML SYR SQ SCH (20:58)
[2023-07-12] MEDS: NICOTINE 21 MG/24 HR TDSY TD SCH (20:59)
[2023-07-13] MEDS: SODIUM CHLOR 7% 4 ML NEB NEB SCH ×2 (07:03→19:28)
[2023-07-13] MEDS: BUDESONIDE 0.25 MG/2 ML VIAL (PULMICORT) NEB SCH ×2 (07:04→19:28)
[2023-07-13] MEDS: FORMOTEROL 20 MCG/2 ML VIAL NEB SCH ×2 (07:04→19:27)
[2023-07-13] MEDS: ACETYLCYSTEINE 20% INHAL SOLN 4ML ***DISPENSED BY RESP. INH SCH ×2 (07:04→19:28)
[2023-07-13] MEDS: ALBUT/IPRATROP 3MG/0.5MG NEB 3 ML VIAL NEB SCH ×4 (07:04→19:28)
--- NOTE | 2023-07-13 07:08 | Pulmonology Progress Note ---
Date of Service July 13, 2023 Assessment & Plan (1) Multifocal pneumonia: (2) Acute respiratory failure with hypoxia: (3) COPD (chronic obstructive pulmonary disease): (4) Community acquired pneumonia: (5) Methadone dependence: Plan CT chest 07/07/2023 personally reviewed: Consolidative process appreciated bilaterally lower lobes especially on the left side Minimal bilateral apical pleural scarring more on the right side No significant mediastinal lymphadenopathy --Chronic hypoxic respiratory failure Multifactorial Multilobar pneumonia along with COPD exacerbation -- Multilobar pneumonia Procalcitonin 0.09 COVID-19, influenza A/B, RSV all negative -- COPD Not on maintenance inhalers at home Recommend Trelegy/BrezTri inhaler to be used on a daily basis at home -- Current smoker > 50 pack-year smoking history, currently smoking a pack a day Importance of quitting explained the patient in depth --Chronic methadone dependence Need to always rule out aspiration in patients who are chronically dependent on methadone Plan: Complete the course of antibiotics for 7 days Mucinex, flutter valve as well as hypertonic saline as well as Mucomyst nebulized Continue with nebulized Perforomist and budesonide On discharge would recommend to continue with airway clearance technique like Mucinex and hypertonic saline nebulized Trelegy/BrezTri inhaler on a daily basis, PFT as an outpatient Outpatient pulmonary follow-up Repeat CT chest in 6-8 weeks No further recommendation from pulmonary perspective, will sign off Please call directly with any questions Case was discussed with Dr. Louis Please note the above document was generated using voice recognition software. It may contain grammatical, syntax or spelling errors.Any formal questions or concerns about the content, text or information contained within the body of this dictation should be directly addressed to the provider for clarification. Admission and Anticipated Discharge Date Admission Date: July 07, 2023 Subjective Patient seen and examined at bedside. No acute distress, no adverse events overnight. She says that she is feeling better compared to before Was saturating 89-90% on 6 L nasal cannula. Fair appetite, no nausea vomiting No headache, no dizziness Review of Systems Review of Systems: All systems reviewed & are unremarkable except as noted in Subjective Physical Exam Physical Exam: Constitutional: No acute distress HEENT: EOMI, PERRLA Respiratory system: Decreased air entry bilaterally, no wheeze, no rhonchi, positive crackles bilateral lower lobes CVS: S1-S2 positive, no murmurs or gallops Abdomen: Soft, nontender, nondistended, positive bowel sounds x4 Extremities: +2 pulses bilaterally radialis/ dorsalis pedis, no cyanosis, no edema Neuro: Awake alert oriented x3 Psych: Normal mood and affect G/U: No Cota Skin: no rashes, warm and dry Lymphatic: no cervical or axillary lymphadenopathy Results & Data Results & Data Vital Signs (Past 12 Hours) Vital Signs Temp Pulse Resp BP BP Pulse Ox O2 Del Method 07/13/23 03:39 36.7 C 71 16 105/60 96 Nasal Cannula 07/12/23 22:03 36.4 C L 77 16 100/59 L 94 Nasal Cannula 07/12/23 19:50 High Flow Nasal Cannula 07/12/23 19:49 36.7 C 80 18 146/71 H 95 Nasal Cannula 07/12/23 19:34 81 18 93 Nasal Cannula O2 Flow Rate 07/13/23 03:39 6.0 07/12/23 22:03 7 07/12/23 19:50 7 07/12/23 19:49 6 07/12/23 19:34 7 Laboratory Results 07/13/23 06:56 07/13/23 06:56 PG Care Time/CCT Total # of Minutes Spent Total Time Spent with Patient: Total time spent is greater than 50% in coordination of care (as documented) at patient's floor/unit and/or counseling patient: Coding Level of Care Code 96974 SUB INP/OBS CARE 2/35MIN Diagnoses Multifocal pneumonia J18.9 Acute respiratory failure with hypoxia J96.01 COPD (chronic obstructive pulmonary disease) J44.9 Community acquired pneumonia J18.9 Methadone dependence F11.20
[2023-07-13 07:18] LABS: Hematocrit (blood only) 41.7 % (37.0-47.0); Hemoglobin 13.4 g/dl (12.0-16.0); Mean Corpuscular Hemoglobin 27.7 pg (25.0-34.0); Mean Corpuscular Hgb Conc 32.1 g/dL (32.0-36.0); Mean Corpuscular Volume 86.2 fL (80.0-100.0); Mean Platelet Volume 8.6 fL (9.4-12.4); Platelet Count 300 K/uL (130-400); RDW Coefficient of Variation 12.6 % (11.5-14.5); RDW Standard Deviation 39.7 fL (36.4-46.3); Red Blood Count 4.84 M/uL (4.20-5.40); White Blood Count 6.43 K/ul (4.8-10.8)
[2023-07-13 07:37] LABS: Calcium 9.7 mg/dl (8.6-10.3); Creatinine Clr Calc Pharmacy 69.1 ml/min; Est GFR (African American) 96.3 ml/min; Est GFR (Non-African American) 83.1 ml/min; Potassium 3.9 mmol/L (3.5-5.1)
[2023-07-13] MEDS: guaiFENesin 600 MG TABCR PO SCH ×2 (08:12→21:04)
[2023-07-13] MEDS: PATIENT'S OWN CONTROLLED MED 1 PO SCH (08:12)
[2023-07-13] MEDS: cefTRIAXone SODIUM 2,000 MG in DEXTROSE 5% 50 ML IV SCH (08:12)
[2023-07-13] MEDS: METHADONE ORAL SOLN 2 MG/ML PO SCH (08:12)
[2023-07-13] MEDS: DOXYCYCLINE HYCLATE 100 MG CAP PO SCH ×2 (09:09→21:05)
--- NOTE | 2023-07-13 16:28 | Hospitalist Progress Note ---
Date of Service July 13, 2023 Assessment & Plan (1) Hypoxia: Plan: Patient is 68-year-old female with history of ongoing tobacco abuse and says she is on methadone as she used to do heroin and currently not doing it since last for 5 years as per patient ,comes today because of shortness of breath and cough going on for for last 4 to 5 days. Bringing phlegm. She was hypoxic on room air 85%. Acute hypoxic respiratory failure Pneumonia Acute COPD exacerbation -CTA:No pulmonary embolus identified. Consolidations in the lower lobes, concerning for atelectasis and pneumonia. Probable atelectasis in the right middle lobe and lingula. Bronchial wall thickening is concerning for bronchitis. Probable mucus impaction and left greater than right lower lobe bronchi. No aortic aneurysm or dissection. Atherosclerotic changes in aorta. -- COVID, influenza, RSV negative Not on any maintenance inhalers at home Continue IV Rocephin, doxycycline Supplemental oxygen as needed--titrate to keep sats 88 to 92% Added Brovana, budesonide Aggressive pulmonary hygiene with hypertonic saline, Mucinex, flutter valve, incentive spirometer Will also need PFTs as outpatient Appreciate pulmonary input Encourage smoking cessation Completed 5-day course of prednisone Consider vibration vest if needed Added Mucomyst Plan for 2 step prior to discharge Slowly improving Needs repeat CT chest in 6 to 8 weeks and follow-up with pulmonology as outpatient 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 She was hypoxic on room air 85%. Acute hypoxicrespiratory failure Pneumonia Possible COPD exacerbation Ongoing tobacco abuse Possible mucus impaction --CTA:No pulmonary embolus identified. Consolidations in the lower lobes, concerning for atelectasis and pneumonia. Probable atelectasis in the right middle lobe and lingula. Bronchial wall thickening is concerning for bronchitis. Probable mucus impaction and left greater than right lower lobe bronchi. No aortic aneurysm or dissection. Atherosclerotic changes in aorta. -- Continue ceftriaxone, doxycycline Continue nebs, prednisone Continue supplemental oxygen as needed Pulmonary hygiene Will consider pulmonary evaluation if no improvement Will need PFTs as outpatient Will need 2 step prior to discharge CXR today pending Hypokalemia Replete electrolytes as needed Monitor Tobacco abuse Counseled to quit smoking H/O Heroin abuse on methadone Pharmacy confirmed the dose DVT Px: Lovenox SQ Code Status Full code Admission and Anticipated Discharge Date Admission Date: July 07, 2023 Subjective Patient is seen and examined at bedside States cough much improved Denies any significant dyspnea at rest Supplemental oxygen requirement trending down Discussed with pulmonology today No new complaints Denies any chest pain, nausea, vomiting, abdominal pain Review of Systems Review of Systems: All systems reviewed & are unremarkable except as noted in Subjective Physical Exam Physical Exam: Physical Exam: Vitals signs as noted above General Appearance:Moderately built and nourished, no apparent distress Head: normocephalic, Atraumatic Eyes: normal inspection, EOMI Neck: supple, Trachea midline Respiratory/Chest: Decreased breath sounds, minimal basal crackles, No accessory muscle use Cardiovascular: S1, S2, No murmur Abdomen/GI:Soft, Non tender, Bowel sounds present Extremities/Musculoskeletal:normal inspection, no edema Neurologic/Psych:AAOX3, grossly no focal neurological deficits Skin: normal color, warm Results & Data Results & Data Vital Signs (Past 12 Hours) Vital Signs Temp Pulse Pulse Resp BP BP Pulse Ox 07/13/23 15:39 36.9 C 84 18 98/59 L 90 07/13/23 14:49 88 07/13/23 14:36 86 18 92 07/13/23 11:05 36.5 C 78 18 112/66 91 07/13/23 11:09 88 18 92 07/13/23 07:31 36.5 C 84 18 129/70 89 L 07/13/23 07:29 82 07/13/23 07:29 07/13/23 07:06 87 18 90 O2 Del Method O2 Flow Rate 07/13/23 15:39 Nasal Cannula 6 07/13/23 14:49 07/13/23 14:36 Nasal Cannula 6 07/13/23 11:05 High Flow Nasal Cannula 6 07/13/23 11:09 Nasal Cannula 6 07/13/23 07:31 High Flow Nasal Cannula 6 07/13/23 07:29 07/13/23 07:29 Nasal Cannula 6 07/13/23 07:06 Nasal Cannula 6 Laboratory Results Short CBC 07/13/23 Range/Units 06:56 WBC 6.43 (4.8-10.8) K/ul Hgb 13.4 (12.0-16.0) g/dl Hct 41.7 (37.0-47.0) % Plt Count 300 (130-400) K/uL BMP 07/13/23 06:56 Sodium 137 Potassium 3.9 Chloride 98 Carbon Dioxide 33 H BUN 18 Creatinine 0.75 Glucose 91 Calcium 9.7
[2023-07-13] MEDS: ENOXAPARIN INJ 40 MG/0.4 ML SYR SQ SCH (21:04)
[2023-07-13] MEDS: NICOTINE 21 MG/24 HR TDSY TD SCH (21:05)
[2023-07-14] MEDS: BUDESONIDE 0.25 MG/2 ML VIAL (PULMICORT) NEB SCH ×2 (06:55→19:56)
[2023-07-14] MEDS: FORMOTEROL 20 MCG/2 ML VIAL NEB SCH ×2 (06:55→19:56)
[2023-07-14] MEDS: SODIUM CHLOR 7% 4 ML NEB NEB SCH ×2 (06:55→19:56)
[2023-07-14] MEDS: ACETYLCYSTEINE 20% INHAL SOLN 4ML ***DISPENSED BY RESP. INH SCH (06:55)
[2023-07-14] MEDS: ALBUT/IPRATROP 3MG/0.5MG NEB 3 ML VIAL NEB SCH ×4 (06:55→20:49)
[2023-07-14] MEDS: PATIENT'S OWN CONTROLLED MED 1 PO SCH (09:02)
[2023-07-14] MEDS: METHADONE ORAL SOLN 2 MG/ML PO SCH (09:02)
[2023-07-14] MEDS: guaiFENesin 600 MG TABCR PO SCH ×2 (09:02→20:47)
[2023-07-14] MEDS: cefTRIAXone SODIUM 2,000 MG in DEXTROSE 5% 50 ML IV SCH (09:11)
[2023-07-14] MEDS: DOXYCYCLINE HYCLATE 100 MG CAP PO SCH ×2 (09:14→20:47)
--- NOTE | 2023-07-14 14:40 | Hospitalist Progress Note ---
Date of Service July 14, 2023 Assessment & Plan (1) Hypoxia: Plan: Patient is 68-year-old female with history of ongoing tobacco abuse and says she is on methadone as she used to do heroin and currently not doing it since last for 5 years as per patient ,comes today because of shortness of breath and cough going on for for last 4 to 5 days. Bringing phlegm. She was hypoxic on room air 85%. Acute hypoxic respiratory failure Pneumonia Acute COPD exacerbation -CTA:No pulmonary embolus identified. Consolidations in the lower lobes, concerning for atelectasis and pneumonia. Probable atelectasis in the right middle lobe and lingula. Bronchial wall thickening is concerning for bronchitis. Probable mucus impaction and left greater than right lower lobe bronchi. No aortic aneurysm or dissection. Atherosclerotic changes in aorta. 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 She was hypoxic on room air 85%. Acute hypoxicrespiratory failure Pneumonia Possible COPD exacerbation Ongoing tobacco abuse Possible mucus impaction --CTA:No pulmonary embolus identified. Consolidations in the lower lobes, concerning for atelectasis and pneumonia. Probable atelectasis in the right m iddle lobe and lingula. Bronchial wall thickening is concerning for bronchitis. Probable mucus impaction and left greater than right lower lobe bronchi. No aortic aneurysm or dissection. Atherosclerotic changes in aorta. -- Continue ceftriaxone, doxycycline Continue nebs, prednisone Continue supplemental oxygen as needed Pulmonary hygiene Will consider pulmonary evaluation if no improvement Will need PFTs as outpatient Will need 2 step prior to discharge CXR today pending Hypokalemia Replete electrolytes as needed Monitor Tobacco abuse Counseled to quit smoking H/O Heroin abuse on methadone Pharmacy confirmed the dose DVT Px: Lovenox SQ Code Status Full code Admission and Anticipated Discharge Date Admission Date: July 07, 2023 Subjective Patient is seen and examined at bedside Denies having cough Dyspnea much improved Failed 2 step today Offers no new complaints Denies any chest pain, nausea, vomiting, abdominal pain Still requiring 6 L supplemental oxygen Review of Systems Review of Systems: All systems reviewed & are unremarkable except as noted in Subjective Physical Exam Physical Exam: Physical Exam: Vitals signs as noted above General Appearance:Moderately built and nourished, no apparent distress Head: normocephalic, Atraumatic Eyes: normal inspection, EOMI Neck: supple, Trachea midline Respiratory/Chest: Decreased breath sounds, minimal basal crackles, No accessory muscle use Cardiovascular: S1, S2, No murmur Abdomen/GI:Soft, Non tender, Bowel sounds present Extremities/Musculoskeletal:normal inspection, no edema Neurologic/Psych:AAOX3, grossly no focal neurological deficits Skin: normal color, warm Results & Data Results & Data Vital Signs (Past 12 Hours) Vital Signs Temp Pulse Pulse Pulse Pulse Pulse Pulse 07/14/23 07:00 76 07/14/23 08:00 07/14/23 11:05 37.1 C 07/14/23 10:20 134 H 132 H 105 H 114 H 07/14/23 10:26 94 H 07/14/23 08:28 36.9 C 91 H 07/14/23 06:55 78 07/14/23 03:00 07/14/23 02:50 36.5 C Pulse Pulse Resp Resp Resp Resp Resp 07/14/23 07:00 07/14/23 08:00 07/14/23 11:05 89 18 07/14/23 10:20 106 H 20 20 18 18 07/14/23 10:26 18 07/14/23 08:28 17 07/14/23 06:55 18 07/14/23 03:00 07/14/23 02:50 81 18 Resp BP Pulse Ox Pulse Ox Pulse Ox Pulse Ox Pulse Ox 07/14/23 07:00 07/14/23 08:00 09/25/23 11:05 99/59 L 90 09/25/23 10:20 18 85 L 82 L 87 L 07/14/23 10:26 89 L 07/14/23 08:28 121/67 95 07/14/23 06:55 90 07/14/23 03:00 92 07/14/23 02:50 121/74 96 Pulse Ox Pulse Ox O2 Del Method O2 Del Method O2 Flow Rate O2 Flow Rate O2 Flow Rate 07/14/23 07:00 07/14/23 08:00 High Flow Nasal Cannula 6 07/14/23 11:05 Nasal Cannula 6 07/14/23 10:20 90 87 L 4 6 07/14/23 10:26 Nasal Cannula 6 07/14/23 08:28 High Flow Nasal Cannula 6 07/14/23 06:55 Nasal Cannula 6 07/14/23 03:00 High Flow Nasal Cannula 07/14/23 02:50 High Flow Nasal Cannula 6 O2 Flow Rate O2 Flow Rate O2 Flow Rate 07/14/23 07:00 07/14/23 08:00 07/14/23 11:05 07/14/23 10:20 2 4 07/14/23 10:26 07/14/23 08:28 07/14/23 06:55 07/14/23 03:00 6 07/14/23 02:50
[2023-07-14] MEDS ORDERED: POLYETHYLENE (MIRALAX) 17 GM PACK PO PRN (16:23)
[2023-07-14] MEDS ORDERED: POLYETHYLENE (MIRALAX) 17 GM PACK PO ONE (16:24)
[2023-07-14] MEDS: DOCUSATE SODIUM 100 MG CAP PO SCH ×2 (16:59→20:48)
[2023-07-14] MEDS: NICOTINE 21 MG/24 HR TDSY TD SCH (20:46)
[2023-07-14] MEDS: ENOXAPARIN INJ 40 MG/0.4 ML SYR SQ SCH (20:50)
[2023-07-15] MEDS: SODIUM CHLOR 7% 4 ML NEB NEB SCH ×2 (07:01→19:13)
[2023-07-15] MEDS: ALBUT/IPRATROP 3MG/0.5MG NEB 3 ML VIAL NEB SCH ×4 (07:02→19:13)
[2023-07-15] MEDS: FORMOTEROL 20 MCG/2 ML VIAL NEB SCH ×2 (07:02→19:13)
[2023-07-15] MEDS: BUDESONIDE 0.25 MG/2 ML VIAL (PULMICORT) NEB SCH ×2 (07:02→19:13)
[2023-07-15 07:52] LABS: Hematocrit (blood only) 41.3 % (37.0-47.0); Hemoglobin 13.9 g/dl (12.0-16.0); Mean Corpuscular Hemoglobin 28.5 pg (25.0-34.0); Mean Corpuscular Hgb Conc 33.7 g/dL (32.0-36.0); Mean Corpuscular Volume 84.8 fL (80.0-100.0); Mean Platelet Volume 8.8 fL (9.4-12.4); Platelet Count 318 K/uL (130-400); RDW Coefficient of Variation 12.5 % (11.5-14.5); RDW Standard Deviation 38.5 fL (36.4-46.3); Red Blood Count 4.87 M/uL (4.20-5.40); White Blood Count 5.49 K/ul (4.8-10.8)
[2023-07-15 08:03] LABS: Calcium 9.8 mg/dl (8.6-10.3); Creatinine Clr Calc Pharmacy 63.2 ml/min; Est GFR (African American) 86.4 ml/min; Est GFR (Non-African American) 74.6 ml/min
[2023-07-15] MEDS: DOCUSATE SODIUM 100 MG CAP PO SCH ×2 (08:19→20:21)
[2023-07-15] MEDS: PATIENT'S OWN CONTROLLED MED 1 PO SCH (08:19)
[2023-07-15] MEDS: METHADONE ORAL SOLN 2 MG/ML PO SCH (08:19)
[2023-07-15] MEDS: guaiFENesin 600 MG TABCR PO SCH ×2 (08:19→20:20)
[2023-07-15] MEDS: DOXYCYCLINE HYCLATE 100 MG CAP PO SCH ×2 (11:44→20:20)
[2023-07-15] MEDS: cefUROXime axetil 500 MG TAB PO SCH ×2 (11:44→20:19)
--- NOTE | 2023-07-15 16:48 | Hospitalist Progress Note ---
Date of Service July 15, 2023 Assessment & Plan (1) Hypoxia: Plan: Patient is 68-year-old female with history of ongoing tobacco abuse and says she is on methadone as she used to do heroin and currently not doing it since last for 5 years as per patient ,comes today because of shortness of breath and cough going on for for last 4 to 5 days. Bringing phlegm. She was hypoxic on room air 85%. Acute hypoxic respiratory failure Pneumonia Acute COPD exacerbation -CTA:No pulmonary embolus identified. Consolidations in the lower lobes, concerning for atelectasis and pneumonia. Probable atelectasis in the right middle lobe and lingula. Bronchial wall thickening is concerning for bronchitis. Probable mucus impaction and left greater than right lower lobe bronchi. No aortic aneurysm or dissection. Atherosclerotic changes in aorta. 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 She was hypoxic on room air 85%. Acute hypoxicrespiratory failure Pneumonia Possible COPD exacerbation Ongoing tobacco abuse Possible mucus impaction --CTA:No pulmonary embolus identified. Consolidations in the lower lobes, concerning for atelectasis and pneumonia. Probable atelectasis in the right middle lobe and lingula. Bronchial wall thickening is concerning for bronchitis. Probable mucus impaction and left greater than right lower lobe bronchi. No aortic aneurysm or dissection. Atherosclerotic changes in aorta. -- Continue ceftriaxone, doxycycline Continue nebs, prednisone Continue supplemental oxygen as needed Pulmonary hygiene Will consider pulmonary evaluation if no improvement Will need PFTs as outpatient Will need 2 step prior to discharge CXR today pending Hypokalemia Replete electrolytes as needed Monitor Tobacco abuse Counseled to quit smoking H/O Heroin abuse on methadone Pharmacy confirmed the dose DVT Px: Lovenox SQ Code Status Full code Admission and Anticipated Discharge Date Admission Date: July 07, 2023 Subjective Patient is seen and examined at bedside Subjectively feels well No new complaints Still requiring 6 L supplemental oxygen to maintain saturations Cough, dyspnea much improved Denies any chest pain, nausea, vomiting, abdominal pain Review of Systems Review of Systems: All systems reviewed & are unremarkable except as noted in Subjective Physical Exam Physical Exam: Physical Exam: Vitals signs as noted above General Appearance:Moderately built and nourished, no apparent distress Head: normocephalic, Atraumatic Eyes: normal inspection, EOMI Neck: supple, Trachea midline Respiratory/Chest: Decreased breath sounds, minimal basal crackles, No accessory muscle use Cardiovascular: S1, S2, No murmur Abdomen/GI:Soft, Non tender, Bowel sounds present Extremities/Musculoskeletal:normal inspection, no edema Neurologic/Psych:AAOX3, grossly no focal neurological deficits Skin: normal color, warm Results & Data Results & Data Vital Signs (Past 12 Hours) Vital Signs Temp Pulse Pulse Pulse Resp BP Pulse Ox 07/15/23 16:00 85 07/15/23 15:37 94 07/15/23 15:31 36.8 C 91 H 14 123/81 89 L 07/15/23 15:11 85 18 91 07/15/23 11:03 73 18 93 07/15/23 11:00 37 C 81 20 113/71 91 07/15/23 07:55 71 07/15/23 07:55 07/15/23 07:00 36.5 C 79 16 124/71 96 07/15/23 07:03 79 18 92 O2 Del Method O2 Flow Rate 07/15/23 16:00 07/15/23 15:37 Nasal Cannula 6 07/15/23 15:31 Nasal Cannula 5 07/15/23 15:11 Nasal Cannula 5 07/15/23 11:03 Nasal Cannula 5 07/15/23 11:00 Room Air 07/15/23 07:55 07/15/23 07:55 Nasal Cannula 5 07/15/23 07:00 Nasal Cannula 5 07/15/23 07:03 Nasal Cannula 5 Laboratory Results Short CBC 07/15/23 Range/Units 07:11 WBC 5.49 (4.8-10.8) K/ul Hgb 13.9 (12.0-16.0) g/dl Hct 41.3 (37.0-47.0) % Plt Count 318 (130-400) K/uL BMP 07/15/23 07:11 Sodium 137 Potassium 4.0 Chloride 97 L Carbon Dioxide 35 H BUN 18 Creatinine 0.82 Glucose 96 Calcium 9.8
[2023-07-15] MEDS: NICOTINE 21 MG/24 HR TDSY TD SCH (20:21)
[2023-07-15] MEDS: ENOXAPARIN INJ 40 MG/0.4 ML SYR SQ SCH (20:23)
[2023-07-16] MEDS: FORMOTEROL 20 MCG/2 ML VIAL NEB SCH (07:09)
[2023-07-16] MEDS: SODIUM CHLOR 7% 4 ML NEB NEB SCH (07:09)
[2023-07-16] MEDS: BUDESONIDE 0.25 MG/2 ML VIAL (PULMICORT) NEB SCH (07:09)
[2023-07-16] MEDS: METHADONE ORAL SOLN 2 MG/ML PO SCH (08:09)
[2023-07-16] MEDS: DOCUSATE SODIUM 100 MG CAP PO SCH (08:11)
[2023-07-16] MEDS: guaiFENesin 600 MG TABCR PO SCH (08:12)
[2023-07-16] MEDS: cefUROXime axetil 500 MG TAB PO SCH (08:12)
[2023-07-16] MEDS: PATIENT'S OWN CONTROLLED MED 1 PO SCH (08:14)
[2023-07-16] MEDS: ALBUT/IPRATROP 3MG/0.5MG NEB 3 ML VIAL NEB SCH ×3 (08:17→16:01)
[2023-07-16] MEDS: DOXYCYCLINE HYCLATE 100 MG CAP PO SCH (09:30)
--- NOTE | 2023-07-16 13:58 | Hospitalist Progress Note ---
Date of Service July 16, 2023 Assessment & Plan (1) Hypoxia: Plan: Patient is 68-year-old female with history of ongoing tobacco abuse and says she is on methadone as she used to do heroin and currently not doing it since last for 5 years as per patient ,comes today because of shortness of breath and cough going on for for last 4 to 5 days. Bringing phlegm. She was hypoxic on room air 85%. Acute hypoxic respiratory failure Pneumonia Acute COPD exacerbation -CTA:No pulmonary embolus identified. Consolidations in the lower lobes, concerning for atelectasis and pneumonia. Probable atelectasis in the right middle lobe and lingula. Bronchial wall thickening is concerning for bronchitis. Probable mucus impaction and left greater than right lower lobe bronchi. No aortic aneurysm or dissection. Atherosclerotic changes in aorta. -- COVID, influenza, RSV negative Not on any maintenance inhalers at home Continue IV Rocephin, doxycycline>>Transitioned to PO antibiotics Supplemental oxygen as needed--titrate to keep sats 88 to 92% Added Brovana, budesonide Aggressive pulmonary hygiene with hypertonic saline, Mucinex, flutter valve, incentive spirometer Will also need PFTs as outpatient Appreciate pulmonary input Encourage smoking cessation Completed 5-day course of prednisone Added Mucomyst Needs repeat CT chest in 6 to 8 weeks and follow-up with pulmonology as outpatient 2 step: Needs 3L oxygen at rest and 4L with activity Plan to discharge home once Supplemental oxygen is arranged 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 She was hypoxic on room air 85%. Acute hypoxicrespiratory failure Pneumonia Possible COPD exacerbation Ongoing tobacco abuse Possible mucus impaction --CTA:No pulmonary embolus identified. Consolidations in the lower lobes, concerning for atelectasis and pneumonia. Probable atelectasis in the right middle lobe and lingula. Bronchial wall thickening is concerning for bronchitis. Probable mucus impaction and left greater than right lower lobe bronchi. No aortic aneurysm or dissection. Atherosclerotic changes in aorta. -- Continue ceftriaxone, doxycycline Continue nebs, prednisone Continue supplemental oxygen as needed Pulmonary hygiene Will consider pulmonary evaluation if no improvement Will need PFTs as outpatient Will need 2 step prior to discharge CXR today pending Hypokalemia Replete electrolytes as needed Monitor Tobacco abuse Counseled to quit smoking H/O Heroin abuse on methadone Pharmacy confirmed the dose DVT Px: Lovenox SQ Code Status Full code Admission and Anticipated Discharge Date Admission Date: July 07, 2023 Subjective Patient is seen and examined at bedside Doing well today No new complaints Cough resolved Denies any significant dyspnea Had 2 step earlier today Denies any chest pain, nausea, vomiting, abdominal pain Review of Systems Review of Systems: All systems reviewed & are unremarkable except as noted in Subjective Physical Exam Physical Exam: Physical Exam: Vitals signs as noted above General Appearance:Moderately built and nourished, no apparent distress Head: normocephalic, Atraumatic Eyes: normal inspection, EOMI Neck: supple, Trachea midline Respiratory/Chest: Decreased breath sounds, minimal basal crackles, No accessory muscle use Cardiovascular: S1, S2, No murmur Abdomen/GI:Soft, Non tender, Bowel sounds present Extremities/Musculoskeletal:normal inspection, no edema Neurologic/Psych:AAOX3, grossly no focal neurological deficits Skin: normal color, warm Results & Data Results & Data Vital Signs (Past 12 Hours) Vital Signs Temp Pulse Pulse Pulse Pulse Pulse Pulse 07/16/23 13:42 36.7 C 07/16/23 10:14 07/16/23 10:04 104 H 105 H 89 87 84 07/16/23 08:00 07/16/23 07:47 36.5 C 07/16/23 07:09 84 Pulse Resp Resp Resp Resp Resp Resp 07/16/23 13:42 76 18 07/16/23 10:14 83 18 07/16/23 10:04 20 20 18 18 18 07/16/23 08:00 07/16/23 07:47 88 18 07/16/23 07:09 18 BP Pulse Ox Pulse Ox Pulse Ox Pulse Ox Pulse Ox Pulse Ox 07/16/23 13:42 113/70 95 07/16/23 10:14 90 07/16/23 10:04 87 L 93 87 L 90 87 L 07/16/23 08:00 07/16/23 07:47 111/67 93 07/16/23 07:09 92 O2 Del Method O2 Flow Rate O2 Flow Rate O2 Flow Rate O2 Flow Rate O2 Flow Rate 07/16/23 13:42 Nasal Cannula 3 07/16/23 10:14 Nasal Cannula 3 07/16/23 10:04 3 4 2 3 07/16/23 08:00 Nasal Cannula 5 07/16/23 07:47 Nasal Cannula 5 07/16/23 07:09 Nasal Cannula 4
--- NOTE | 2023-07-16 14:34 | Discharge Summary ---
Date of Service July 16, 2023 Admission HPI Per Admitting Provider 68-year-old female with history of ongoing tobacco abuse and says she is on methadone as she used to do heroin and currently not doing it since last for 5 years as per patient ,comes today because of shortness of breath and cough going on for for last 4 to 5 days. Bringing phlegm. She was hypoxic on room air 85%. Currently on 3 L she is saturating okay. Denies any fevers. No chest pain. Had episode of vomiting in the ER. No abdominal pain. No headaches. No neck pain. Has some back pain. Normal bowel and bladder movements. Currently resting comfortably. Past medical history as mentioned above Past surgical history none as per patient Social history. Smoking 1 pack of cigarettes daily for last 30 years. Alcohol occasional. History of heroin in the past but states no drug use last for 4/5 years. Family history. Mother had hypertension. Dad had colon cancer as per patient Admission Exam Per Admitting Provider General- Not in distress Head- atraumatic Eyes- PERRL, ENT- oropharynx clear Neck- supple, no JVD,. Lungs- clear to auscultation mild bilateral rhonchi heard Heart- regular rhythm; no murmur, no gallop. Abdomen- normal bowel sounds, soft, nontender, no distension. Extremities- no pretibial edema, no erythema seen. Neuro- alert, oriented x 3; PERRL, no facial palsy; no dysarthria; non focal. Skin- warm & dry Principal Diagnosis Acute hypoxic respiratory failure Pneumonia Acute COPD exacerbation Tobacco Use Disorder Discharge Data Allergies Allergy/AdvReac Type Severity Reaction Status Date / Time No Known Allergies Allergy Unknown Unverified 07/08/16 12:46 Consultations 07/07/23 20:07 ED Decision to Admit Stat 07/10/23 09:21 Consult Pulmonology Routine Procedures Performed Laboratory Results WBC 5.49 K/ul (4.8-10.8) 07/15/23 07:11 RBC 4.87 M/uL (4.20-5.40) 07/15/23 07:11 Hgb 13.9 g/dl (12.0-16.0) 07/15/23 07:11 Hct 41.3 % (37.0-47.0) 07/15/23 07:11 MCV 84.8 fL (80.0-100.0) 07/15/23 07:11 MCH 28.5 pg (25.0-34.0) 07/15/23 07:11 MCHC 33.7 g/dL (32.0-36.0) 07/15/23 07:11 RDW Std Deviation 38.5 fL (36.4-46.3) 07/15/23 07:11 RDW Coeff of Rosario 12.5 % (11.5-14.5) 07/15/23 07:11 Plt Count 318 K/uL (130-400) 07/15/23 07:11 MPV 8.8 fL (9.4-12.4) L 07/15/23 07:11 Immature Gran % (Auto) 0.6 % 07/09/23 06:24 Neut % (Auto) 88.4 % 07/09/23 06:24 Lymph % (Auto) 6.9 % 07/09/23 06:24 [place] % (Auto) 4.0 % 07/09/23 06:24 Eos % (Auto) 0.0 % 07/09/23 06:24 Baso % (Auto) 0.1 % 07/09/23 06:24 Neut # (Auto) 15.65 K/uL (1.40-6.50) H 07/09/23 06:24 Lymph # (Auto) 1.22 K/uL (1.20-3.40) 07/09/23 06:24 [place] # (Auto) 0.70 K/uL (0.11-0.59) H 07/09/23 06:24 Eos # (Auto) 0.00 K/uL (0.00-0.50) 07/09/23 06:24 Baso # (Auto) 0.02 K/uL (0.00-0.20) 07/09/23 06:24 Immature Gran # (Auto) 0.11 K/uL (0.01-0.20) 07/09/23 06:24 Hypersegmented Neuts 1+ 07/08/23 06:14 Rouleaux 1+ 07/08/23 06:14 ABG pH 7.43 (7.35-7.45) 07/10/23 10:09 ABG pCO2 44 mmHg (35-46) 07/10/23 10:09 ABG pO2 66 mmHg (80-95) L 07/10/23 10:09 ABG HCO3 29 mmol/L (19-24) H 07/10/23 10:09 ABG O2 Saturation 96.0 % (90-95) H 07/10/23 10:09 ABG Base Excess 4.2 mEq/L (-9-1.8) H 07/10/23 10:09 Alli Test Pos (Pos) 07/10/23 10:09 VBG pH 7.44 (7.36-7.41) H 07/07/23 17:14 VBG pCO2 43 mmHg (38-50) 07/07/23 17:14 VBG pO2 41 mmHg 07/07/23 17:14 VBG HCO3 29 mmol/L 07/07/23 17:14 VBG O2 Saturation 76.2 % 07/07/23 17:14 VBG Base Excess 4.4 mEq/L 07/07/23 17:14 Oxygen Given 9 L 07/10/23 10:09 Sodium 137 mmol/L (136-145) 07/15/23 07:11 Potassium 4.0 mmol/L (3.5-5.1) 07/15/23 07:11 Chloride 97 mmol/L (98-107) L 07/15/23 07:11 Carbon Dioxide 35 mmol/L (21-32) H 07/15/23 07:11 Anion Gap 5 (3-11) 07/15/23 07:11 BUN 18 mg/dl (6-23) 07/15/23 07:11 Creatinine 0.82 mg/dl (0.6-1.2) 07/15/23 07:11 Est Cr Clr Drug Dosing 63.2 ml/min 07/15/23 07:11 Est GFR ( Amer) 86.4 ml/min 07/15/23 07:11 Est GFR (Non-Af Amer) 74.6 ml/min 07/15/23 07:11 BUN/Creatinine Ratio 22.0 (10-20) H 07/15/23 07:11 Glucose 96 mg/dl (70-99(Fasting)) 07/15/23 07:11 Calcium 9.8 mg/dl (8.6-10.3) 07/15/23 07:11 Magnesium 2.0 mg/dl (1.7-2.4) 07/11/23 06:38 Total Bilirubin 0.8 mg/dl (0.2-1.0) 07/07/23 17:14 AST 13 U/L (13-39) 07/07/23 17:14 ALT 9 U/L (7-52) 07/07/23 17:14 Alkaline Phosphatase 58 U/L (34-104) 07/07/23 17:14 Troponin I High Sens 3.2 pg/ml (0-14) 07/07/23 17:14 Total Protein 8.0 gm/dl (6.0-8.3) 07/07/23 17:14 Albumin 4.1 gm/dl (3.4-5.0) 07/07/23 17:14 Globulin 3.9 gm/dl (2.5-4.0) 07/07/23 17:14 Albumin/Globulin Ratio 1.1 (0.9-2) 07/07/23 17:14 Procalcitonin 0.09 ng/ml (0-0.5) 07/10/23 06:39 Urine Color Yellow 07/08/23 Unknown Urine Appearance Clear (Clear) 07/08/23 Unknown Urine pH 5.0 (4.5-7.5) 07/08/23 Unknown Ur Specific [place] > 1.045 (1.000-1.030) H 07/08/23 Unknown Urine Protein Negative (Negative) 07/08/23 Unknown Urine Glucose (UA) Negative (Negative) 07/08/23 Unknown Urine Ketones Trace (Negative) H 07/08/23 Unknown Urine Blood Negative (Negative) 07/08/23 Unknown Urine Nitrite Negative (Negative) 07/08/23 Unknown Urine Bilirubin Negative (Negative) 07/08/23 Unknown Urine Urobilinogen Negative (Negative) 07/08/23 Unknown Ur Leukocyte Esterase Negative (Negative) 07/08/23 Unknown Nasal Screen MRSA (PCR) Negative (Negative) 07/11/23 09:28 SARS-CoV-2 (PCR) NEGATIVE (Negative) 07/07/23 16:55 Influenza Type A (PCR) Negative (Neg) 07/07/23 16:55 Influenza Type B (PCR) Negative (Neg) 07/07/23 16:55 RSV (RT-PCR) Negative (Neg) 07/07/23 16:55 Impressions Chest CTA 07/07/23 16:48 Exam(s): CTA CHEST IV Amt: 120 ml optiray 350 EXAM: CT Angiography Chest With Intravenous Contrast CLINICAL HISTORY: Reason for exam: PE. TECHNIQUE: Axial computed tomographic angiography images of the chest with intravenous contrast. CTDI is 30 mGy and DLP is 384.18 mGy-cm. Automated exposure control was utilized for the study. A dose lowering technique was utilized adhering to the principles of ALARA. MIP reconstructed images were created and reviewed. COMPARISON: None FINDINGS: Pulmonary arteries: Unremarkable. No pulmonary embolus identified. Aorta: No aortic aneurysm or dissection. Atherosclerotic changes in aorta. Lungs: Consolidations in the lower lobes, concerning for atelectasis and pneumonia. Probable atelectasis in the right middle lobe and lingula. Bronchial wall thickening is concerning for bronchitis. Probable mucus impaction and left greater than right lower lobe bronchi. Mild scarring of the lung apices. Pleural space: Unremarkable. No significant effusion. No pneumothorax. Heart: Unremarkable. No cardiomegaly. No significant pericardial effusion. No evidence of RV dysfunction. Bones/joints: Degenerative changes of the spine. No acute fracture. No dislocation. Soft tissues: Unremarkable. Lymph nodes: Unremarkable. No enlarged lymph nodes. IMPRESSION: 1. No pulmonary embolus identified. 2. Consolidations in the lower lobes, concerning for atelectasis and pneumonia. Probable atelectasis in the right middle lobe and lingula. 3. Bronchial wall thickening is concerning for bronchitis. Probable mucus impaction and left greater than right lower lobe bronchi. 4. No aortic aneurysm or dissection. Atherosclerotic changes in aorta. Electronically signed by: Mark Krueger M.D. 07/07/23 20:21 PM Chest X-Ray 07/12/23 08:56 XR chest 1V portable CLINICAL HISTORY: Hypoxia TECHNIQUE: Single frontal radiograph of the chest was obtained. Comparison: Comparison is made to chest radiograph 07/09/2023 FINDINGS: No lines and tubes are seen. The cardiomediastinal silhouette is normal. The lungs are clear. Small left pleural effusion. IMPRESSION: Small left pleural effusion. ACT 112: Negative or not required by law. Electronically signed by: Tristan Manzano M.D. 07/12/2023 7:20 PM Ordered Studies 07/07/23 16:48 CT for pulmonary embolism PE [CT angio chest PE protocol] Stat Hospital Course (1) Hypoxia: Patient is 68-year-old female with history of ongoing tobacco abuse and says she is on methadone as she used to do heroin and currently not doing it since last for 5 years as per patient ,comes today because of shortness of breath and cough going on for for last 4 to 5 days. Bringing phlegm. She was hypoxic on room air 85%. Acute hypoxic respiratory failure Pneumonia Acute COPD exacerbation -CTA:No pulmonary embolus identified. Consolidations in the lower lobes, concerning for atelectasis and pneumonia. Probable atelectasis in the right middle lobe and lingula. Bronchial wall thickening is concerning for bronchitis. Probable mucus impaction and left greater than right lower lobe bronchi. No aortic aneurysm or dissection. Atherosclerotic changes in aorta. -- COVID, influenza, RSV negative Not on any maintenance inhalers at home Continue IV Rocephin, doxycycline>>Transitioned to PO antibiotics Supplemental oxygen as needed--titrate to keep sats 88 to 92% Added Brovana, budesonide Aggressive pulmonary hygiene with hypertonic saline, Mucinex, flutter valve, incentive spirometer Will also need PFTs as outpatient Appreciate pulmonary input Encourage smoking cessation Completed 5-day course of prednisone Added Mucomyst Needs repeat CT chest in 6 to 8 weeks and follow-up with pulmonology as outpatient 2 step: Needs 3L oxygen at rest and 4L with activity Plan to discharge home once Supplemental oxygen is arranged 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 She was hypoxic on room air 85%. Acute hypoxicrespiratory failure Pneumonia Possible COPD exacerbation Ongoing tobacco abuse Possible mucus impaction --CTA:No pulmonary embolus identified. Consolidations in the lower lobes, concerning for atelectasis and pneumonia. Probable atelectasis in the right middle lobe and lingula. Bronchial wall thickening is concerning for bronchitis. Probable mucus impaction and left greater than right lower lobe bronchi. No aortic aneurysm or dissection. Atherosclerotic changes in aorta. -- Continue ceftriaxone, doxycycline Continue nebs, prednisone Continue supplemental oxygen as needed Pulmonary hygiene Will consider pulmonary evaluation if no improvement Will need PFTs as outpatient Will need 2 step prior to discharge CXR today pending Hypokalemia Replete electrolytes as needed Monitor Tobacco abuse Counseled to quit smoking H/O Heroin abuse on methadone Pharmacy confirmed the dose DVT Px: Lovenox SQ Code Status Full code Total Time Total Time Spent Total Time Spent (In Minutes): 65 minutes Discharge Plan Discharge Items Patient Disposition: Home - Self-Care Reason For Visit: ACUTE BRONCHITIS, HYPOXIA Discharge Diagnosis: Acute hypoxic respiratory failure Pneumonia Acute COPD exacerbation Tobacco Use Disorder Activity: Per Instructions section Exercise/Sports: Wait until after follow-up appointment Non-emergency contact: Primary Care Provider and Informatics Developer Call non-emergency contact if: you have any medication questions, your symptoms worsen, your pain is concerning for you and you have a fever Follow-up/Referrals: Sary Magallon PA-C [Primary Care Provider] - Diet: Heart Healthy Addtl Attending Provider Instructions: Follow-up with your primary care physician on July 22, 2023 at 3 PM as scheduled Follow-up with your manager agricultural for outpatient pulmonary function tests as advised. --Use supplemental oxygen 3 L at rest and 4 L with activity as advised. --Quit smoking tobacco as advised. --Complete the antibiotic course as prescribed. --- Your manager agricultural recommends repeat CT chest in 6 to 8 weeks to assess resolution of pneumonia. Seek immediate medical attention if your symptoms reoccur or worsen Please take all medications as instructed on discharge list below. Please call if you have any questions or problems. You can reach a [facility] hospitalist on duty at [facility] 24 hours a day by calling [phone] Pending Studies at Discharge: No Stand-Alone Forms: My [facility], Smoking Cessation Medications and DC Order Prescriptions: New doxycycline hyclate 100 mg Capsule 100 mg PO BID@1000,2200 Qty: 4 0RF docusate sodium 100 mg Capsule 100 mg PO BID PRN (Reason: Constipation) Qty: 20 0RF cefuroxime axetil 500 mg Tablet 500 mg PO BID Qty: 4 0RF polyethylene glycol 3350 [Miralax] 17 gram Powder In Packet 17 g PO DAILY PRN (Reason: constipation) Qty: 14 0RF guaifenesin [Mucinex] 600 mg Tablet Extended Release 12hr 600 mg PO Q12 7 Days Qty: 14 0RF Trelegy Ellipta 100-62.5-25 mcg blister with device 1 inh inhalation DAILY Qty: 60 1RF Continued albuterol sulfate 90 mcg/actuation HFA aerosol inhaler 2 puff INHALATION Q4H PRN (Reason: Shortness Of Breath Or Wheezing) Qty: 8.5 1RF Discharge Orders: Discharge Order (Routine); Ordered 07/16/23 Ordered By: Erasto Louis Admission Data Admit Date/Time: 07/07/23 21:29 Attending Provider: Erasto Louis Admit Provider: Luis Ospina Primary Care Provider: Sary Magallon Other Providers: Luis Ospina ; Chavez Larsen ; [facility]
== END 2023-07-16 16:56 | disposition home or self-care (01) | DRG 193 ==
LOC: ED 16:18 → 2S 21:29 → SUATTDRO 21:29 → 2S 23:38 → 3N 07-15 22:25